=== PATIENT | female | born 1955 | race Caucasian/White ===

== ENCOUNTER 2025-03-23 19:08 | Observation (INO) | payer MEDICARE, SELFPAY ==
--- OUTSIDE RECORDS SUMMARY | 2024-08-26 05:30 | XMS_ITS ---
Author Organization [facility] Address [address] [place], [place] [id number] Care Team Providers Care Technical Aide Name Role Phone DOV MCALLISTER Unavailable [phone] Sony Montoya Unavailable Unavailable REASON FOR VISIT *General care Encounters Encounter Location Date Provider Diagnosis [facility] [address] [facility] [address] [place], [place] [id number] 08/26/2024 DOV MCALLISTER Plan Of Treatment No Information Progress Notes * HIRAM GROVES MDOB: [birth year] (70 yo F)Acc No.[id number]:08/26/2024 Patient: Olayinka HIRAM PFEIFFER Provider: Alvaro Mcallister DPM :1955 A ge:69 Y S ex:Female Date:08/26/2024 Address:[address], [place], [place] Subjective: * Chief Complaints: * * General care Billing Information: * Procedure Codes: * Electronic signature of ODV MCALLISTER DPM on 03/23/2025 at 08:47 AM CDT Sign off status: Pending * Provider: Alvaro Mcallister DPM Date: 0 08/26/2024 Generated for Printi ng/Faxing/eTransmitting on: 1 08:47 AM CDT
--- OUTSIDE RECORDS SUMMARY | 2025-03-12 04:00 | XMS_ITS ---
Author Organization [facility] Address [address] [place] [address] Care Team Providers Care Client Technical Professional Name Role Phone Migration, Provider Unavailable Unavailable REASON FOR VISIT EMR-Danielito Encounters Encounter Location Date Provider Diagnosis [facility] [address] [place] [address] 03/12/2025 Provider Migration Plan Of Treatment No Information Progress Notes * Nerissa ASTUDILLOOB: 4 (70 yo F)Acc No.[id number]:03/12/2025 Patient: Olayinka Gayathri PFEIFFER :1955 A ge:70 Y S ex:Female Address:[address] [place] [address] Subjective: * Chief Complaints: * E MR-Danielito * * Date:
[2025-03-23] VITALS (16 sets, daily range): BP systolic 161–207; BP diastolic 73–132; PULSE 60–83; RESP 14–23; TEMP 36.2–36.9; O2SAT 19–96; BMI 32.1
--- NOTE | ~2025-03-23 | CT_ITS ---
EXAMINATION: CTA brain carotid DATE: 03/24/2025 09:21 INDICATION: Amnesia. TECHNIQUE: Computed tomographic angiography (CTA) of the head was performed without and with 100 mL Omnipaque-350 intravenous contrast. CTA of the neck was performed with intravenous contrast. Automated exposure control and iterative reconstruction technique were employed. The dose-length product was 1946.25 mGy- cm. Maximum intensity projection and volume rendered 3D-reconstructions were created by the technologist on a separate workstation. COMPARISON: Head CT 03/23/25 FINDINGS: HEAD CTA: There is an old infarct infarct involving the right basal ganglia, posterior limb right internal capsule, and right thalamus. There is an old infarct in the right frontoparietal region. There are scattered areas of low attenuation in the cerebral white matter. There is no intracranial hemorrhage, acute infarction, or abnormal intracranial mass lesion. There is ex vacuo dilatation of body of right lateral ventricle. The paranasal sinuses are clear. There are likely changes of ocular lens replacement surgeries. There is a small left mastoid effusion. The vertebral arteries are codominant. There is total occlusion of distal left vertebral artery. There is no significant stenosis of basilar artery or the posterior cerebral arteries. There is no significant stenosis of intracranial internal carotid arteries or anterior or middle cerebral arteries. Anterior communicating artery is normal. The posterior communicating arteries are normal. There is no aneurysm. NECK CTA: There are small pleural effusions. The lungs demonstrate septal thickening and groundglass opacities, consistent with pulmonary edema. There are nodules in the thyroid measuring up to 6 mm, likely not clinically significant. There is mediastinal and bilateral supraclavicular lymphadenopathy. For example, a right supraclavicular node measures 11 x 17 mm. Main pulmonary artery is enlarged, consistent with pulmonary arterial hypertension. There is no significant stenosis of the cervical vertebral arteries. There is plaque in the proximal internal carotid arteries. There is 62% stenosis of the proximal right internal carotid artery relative to normal distal artery lumen diameter (NASCET criteria). There is 49% stenosis of the proximal left internal carotid artery relative to normal distal artery lumen diameter. There is severe cervical spondylosis. IMPRESSION: 1. 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 2. 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 3. 62% stenosis of the proximal right internal carotid artery relative to normal distal artery lumen diameter (NASCET criteria). 4. 49% stenosis of the proximal left internal carotid artery relative to normal distal artery lumen diameter. 5. Mediastinal and bilateral supraclavicular lymphadenopathy, which may be reactive, metastatic disease, or lymphoma. 6. Pulmonary edema and small pleural effusions. Reviewed, dictated and finalized at location E. IMPRESSION: 1. Old infarcts involving the right basal ganglia, posterior limb right interna l capsule, right thalamus, and right frontoparietal region. 2. 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 3. 62% stenosis of the proximal right internal carotid artery relative to blayne l distal artery lumen diameter (NASCET criteria). 4. 49% stenosis of the proximal left internal carotid artery relative to normal distal artery lumen diameter. 5. Mediastinal and bilateral supraclavicular lymphadenopathy, which may be reac tive, metastatic disease, or lymphoma. 6. Pulmonary edema and small pleural effusions.
--- NOTE | ~2025-03-23 | CT_ITS ---
CT HEAD NON-CONTRAST Clinical History: poss cva Comparison: None Technique: Unenhanced axial images skull base to vertex Coronal, sagittal reformats CT images acquired with automatic exposure control for dose reduction DLP: 605 mGy-cm Findings: Mild white matter changes, typically chronic microvascular ischemic disease. Sulci, ventricles: Unremarkable. No intracerebral hemorrhage. No evidence acute territorial infarct. No mass effect, midline shift. Bony calvarium intact. Visualized paranasal sinuses: Clear. Mastoid air cells: Clear. IMPRESSION: 1. No acute intracranial findings. Reviewed, dictated and finalized at location R.
--- NOTE | ~2025-03-23 | XR_ITS ---
XR chest 1V portable INDICATION:speaking difficulties . REFERENCE: None FINDINGS: A single AP of the chest demonstrates normal heart size. The lungs are clear. There is no evidence of pneumothorax or pleural effusion. No chamber pacing device is noted. IMPRESSION: No acute pulmonary findings. Reviewed, dictated and finalized at location S.
--- OUTSIDE RECORDS SUMMARY | 2025-03-23 02:44 | XMS_ITS ---
Author Organization [facility] Address [address] [place] [phone] Care Team Providers Care Childbirth Educator Name Role Phone DR. MINE CASTELLANOS Primary Care Provider [phone] Allergies Allergen (clinical drug ingredient) Drug/Non Drug Allergy documented on EMR Reaction Allergy Type Onset Date Status Plendil Unknown Drug Allergy Active furosemide Furosemide Unknown Drug Allergy Activ e REASON FOR VISIT chart prep Medications Medication SIG (Take, Route, Frequency, Duration) Notes Start Date End Date Status Eliquis 5 MG Tablet 1 tablet Orally twic e a day Active Docusate Sodium 100 MG Capsule 1 capsule Orally twice a day Active Atorvastatin Calcium 80 MG Tablet 1 tablet Orally Once a day Active Acetaminophen 325 MG Tablet 2 tablet as needed Orally every 6 hrs Active Triamcinolone Acetonide 0.1 % Ointment 1 application Externally Twice a day 2025 Active Meclizine HCl 12.5 MG Tablet 1 tablet Orally daily Active Levothyroxine Sodium 100 MCG Tablet 1 tablet in the morning on an empty stomach Orally Once a day Active glipiZIDE 5 MG Tablet 1 tablet 30 minute s before breakfast Orally Once a day Active Farxiga 10 MG Tablet 1 tablet Orally Onc e a day Active Ergocalciferol 1.25 MG (60750 UT) Capsule 1 capsule Orally weekly Active Lisinopril 10 MG Tablet 1 tablet Orally Once a day; Duration: 30 days 03/01/2025 Active NexIUM 40 MG Capsule Delayed Release 1 CAPSULE Orally Once a day Active MiraLax 17 GM/SCOOP Powder as directed Orally daily As needed Active metFORMIN HCl 1000 MG Tablet 1 tablet wi th a meal Orally Once a day Active Melatonin 3 MG Tablet 1 tablet at bedtim e as needed Orally Once a day Active Lisinopril 5 MG Tablet 1 tablets Orally Once a day Active diphenhydrAMINE HCl 25 MG Tablet 1 tablet at bedtime as needed Orally Once a day Active Social History Tobacco Use: Social History Observation Description Date Details (start date - stop date) Never Smoker NA - NA Social History Tobacco Use: Social Info Question Answer Notes Tobacco Control (Standard) Tobacco use: Nonsmoker Encounters Encounter Location Date Provider Diagnosis [facility] [address] [place] [address] 03/23/2025 MINE CASTELLANOS Plan Of Treatment Next Appt Details Provider Name:Augusta Jimenez , 03/24/2025 07:15:00 AM, [address], [place], [address], Progress Notes * Nerissa ASTUDILLOOB: 4 (70 yo F)Acc No.[id number]:03/23/2025 Patient: Gayathri ALVARADO :1955 A ge:70 Y S ex:Female Address:[address] [place], [place] [id number] Subjective: * Chief Complaints: * C bahena prep * Medical History: Other cerebral infarction Hemiplegia and hemiparesis following cerebral infarction affecting left non- dominant side Type 2 diabetes mellitus without complication, unspecified whether bed bug exterminator insulin use Heart failure, unspecified Unspecified atrial fibrillation Muscle weakness (generalized) Other abnormalities of gait and mobility Other voice and resonance disorders Hyperlipidemia Insomnia, unspecified Essential (primary) hypertension Need for assistance with personal care Personal history of transient ischemic attack (TIA), and cerebral infarction without residual deficits Pain, unspecified Hypothyroidism, unspecified Obstructive sleep apnea (adult) (pediatric) Meniere's disease, unspecified ear Hypo-osmolality and hyponatremia Vitamin D deficiency Nausea Gastro-esophageal reflux disease without esophagitis Constipation Gout, unspecified * Surgical History: cardiac cathetherization total hip arthroplasty pacemaker Surgical History verified. * Family History: M other: breast cancer. F ather: diagnosed with Acute myocardial infarction, unspecified.?Maternal Grandfather: diagnosed with Stroke. F amily History Verified.. * Social History: T obacco Use: T obacco Control (Standard) T obacco use: N onsmoker. Social History Verified. * Medications: T akingLisinopril 5 MG Tablet 1 tablets Orally Once a day diphenhydrAMINE HCl 25 MG Tablet 1 tablet at bedtime as needed Orally Once a day Lisinopril 10 MG Tablet 1 tablet Orally Once a day NexIUM 40 MG Capsule Delayed Release 1 CAPSULE Orally Once a day MiraLax 17 GM/SCOOP Powder as directed Orally daily As neededmetFORMIN HCl 1000 MG Tablet 1 tablet with a meal Orally Once a day Melatonin 3 MG Tablet 1 tablet at bedtime as needed Orally Once a day Meclizine HCl 12.5 MG Tablet 1 tablet Orally daily Levothyroxine Sodium 100 MCG Tablet 1 tablet in the morning on an empty stomach Orally Once a day glipiZIDE 5 MG Tablet 1 tablet 30 minutes before breakfast Orally Once a day Farxiga 10 MG Tablet 1 tablet Orally Once a day Ergocalciferol 1.25 MG (12891 UT) Capsule 1 capsule Orally weekly Eliquis 5 MG Tablet 1 tablet Orally twice a day Docusate Sodium 100 MG Capsule 1 capsule Orally twice a day Atorvastatin Calcium 80 MG Tablet 1 tablet Orally Once a day Acetaminophen 325 MG Tablet 2 tablet as needed Orally every 6 hrs Triamcinolone Acetonide 0.1 % Ointment 1 application Externally Twice a day Taking Lisinopril 5 MG Tablet 1 tablets Orally Once a day Taking diphenhydrAMINE HCl 25 MG Tablet 1 tablet at bedtime as needed Orally Once a day Taking Lisinopril 10 MG Tablet 1 tablet Orally Once a day Taking NexIUM 40 MG Capsule Delayed Release 1 CAPSULE Orally Once a day Taking MiraLax 17 GM/SCOOP Powder as directed Orally daily As neededTaking metFORMIN HCl 1000 MG Tablet 1 tablet with a meal Orally Once a day Taking Melatonin 3 MG Tablet 1 tablet at bedtime as needed Orally Once a day Taking Meclizine HCl 12.5 MG Tablet 1 tablet Orally daily Taking Levothyroxine Sodium 100 MCG Tablet 1 tablet in the morning on an empty stomach Orally Once a day Taking glipiZIDE 5 MG Tablet 1 tablet 30 minutes before breakfast Orally Once a day Taking Farxiga 10 MG Tablet 1 tablet Orally Once a day Taking Ergocalciferol 1.25 MG (87007 UT) Capsule 1 capsule Orally weekly Taking Eliquis 5 MG Tablet 1 tablet Orally twice a day Taking Docusate Sodium 100 MG Capsule 1 capsule Orally twice a day Taking Atorvastatin Calcium 80 MG Tablet 1 tablet Orally Once a day Taking Acetaminophen 325 MG Tablet 2 tablet as needed Orally every 6 hrs Taking Triamcinolone Acetonide 0.1 % Ointment 1 application Externally Twice a day * Allergies: F urosemidePlendilyesAllergies Verified. * true * Date: Generated for Meredith catherine/Noemi/Jessica on: 08:59 PM CDT
--- NOTE | 2025-03-23 19:13 | ECG_ITS ---
Test Date: 2025-03-23 19:48:37 Measurements Intervals [place] Rate: 60 P: 0 OH: 0 QRS: -75 QRSD: 178 T: 101 QT: 531 QTc: 531 Interpretive Statements ELECTRONIC VENTRICULAR PACEMAKER BASELINE ARTIFACT- I, III, AVR, AVL, V1-V3 NO FURTHER INTERPRETATION IS POSSIBLE ATYPICAL ECG No previous ECG available for comparison Electronically Signed On 03-24-2025 06:15:07 CDT by Sergio Moe D.O.
[2025-03-23 19:20] LABS: Hematocrit 41.1 % (37.0-47.0); Hemoglobin 13.3 g/dL (12.0-15.0); Immature Granulocyte Percent A 0.5 % (0-0.5); Lymphocytes Absolute Auto 1.64 K/mm3 (0.9-3.2); Mean Corpuscular HGB Conc 32.4 g/dl (32-36); Mean Corpuscular Hemoglobin 29.0 pg (26-34); Mean Corpuscular Volume 89.7 fl (80-100); Nucleated Red Blood Cells Absolute Auto 0.000 K/mm3 (0.0-0.012); Nucleated Red Blood Cells Perc 0.0 % (0.0-0.2); Platelet Count Result 213 k/mm3 (150-375); Red Blood Count 4.58 M/mm3 (4.2-5.4); White Blood Count 7.5 K/mm3 (4.5-10.0)
[2025-03-23 19:27] LABS: INR 1.1; Prothrombin Time 14.6 Seconds (11.1-14.7)
[2025-03-23 19:28] LABS: Partial Thromboplastin Time 34.8 Seconds (22.3-36.8)
[2025-03-23 19:31] LABS: Alanine Aminotransferase 18 U/L (6-35); Albumin Level 4.0 g/dL (3.5-5.1); Alkaline Phosphatase 87 U/L (38-126); Anion Gap 11 mmol/L (4-12); Aspartate Amino Transferase 19 U/L (14-36); Bilirubin,Total 0.7 mg/dL (0.2-1.3); Blood Urea Nitrogen 18 mg/dL (7-17); Calcium 9.4 mg/dL (8.4-10.2); Carbon Dioxide 22 mmol/L (22-30); Chloride 106 mmol/L (98-107); Estimated CRCL calculation 71 ml/min; Estimated Glomerular Filt Rate > 60; Glucose 123 mg/dL (65-110); Potassium 3.9 mmol/L (3.4-5.0); Sodium 139 mmol/L (137-145); Total Protein 6.9 g/dL (6.3-8.2)
[2025-03-23 19:41] LABS: Troponin I < 0.012 ng/mL (0.000-0.034)
--- NOTE | 2025-03-23 19:59 | ED_ITS ---
HPI - Neuro Symptoms/Deficit General Chief Complaint: Suspected CVA Stated Complaint: cva symptoms Time Seen by Provider: 03/23/25 19:47 Source: patient Mode of arrival: ambulatory Limitations: no limitations History of Present Illness HPI Narrative: 70 YEARS OLD WHITE FEMALE CAME FROM LONG TERM BY AMBULANCE WITH SUDDEN ONSET OF DIFFICULTY TO MANAGE THE REMOTE CONTROL OF TV, COULD NOT REMEMBER THE CHANNELS, COULD NOT FIND WORDS, COULD REMEMBER THE NAME OF THE NURSE LASTED FOR 10 MINUTES THEN EVERYTHING IS BACK TO NORMAL. ON ARRIVAL TO THE ED PATIENT IS ASYMPTOMATIC. HISTORY OF DIABETES, HYPERTENSION, HYPERLIPIDEMIA, LEFT HEMIPLEGIA 16 YEARS AGO, PATIENT IS TELLING ME THAT SHE HAD RECENT CVA ON DECEMBER OF THIS YEAR AND WAS HOSPITALIZED AT [facility] AT THAT TIME. PATIENT CURRENTLY ON ELIQUIS AND ASPIRIN. PATIENT USE A WALKER, CANE TO MANAGE WALKING. SHE DENIES ANY FEVER, CHILLS, NAUSEA, VOMITING, CHEST PAIN, SHORTNESS OF BREATH OR NEW FOCAL NEUROLOGIC ABNORMALITY Review of Systems 2 Review of Systems: All systems reviewed & are unremarkable except as noted in HPI and below Exam 2 Narrative: GENERAL APPEARANCE: WELL-DEVELOPED, WELL-NOURISHED SKIN: NORMAL COLOR HEAD: NORMOCEPHALIC, NONTRAUMATIC EYES: CLEAR CONJUNCTIVA ENT: OROPHARYNX NORMAL, EARS NORMAL, NOSE NORMAL NECK: SUPPLE, NONTENDER CHEST AND RESPIRATORY: AIRWAY PATENT, NO RESPIRATORY DISTRESS, NO ACCESSORY MUSCLE USE HEART: REGULAR RATE/RHYTHM ABDOMEN: SOFT, NONTENDER, NO ORGANOMEGALY, QUIET BOWEL SOUNDS VASCULAR: NORMAL PERIPHERAL PULSES, NORMAL CAPILLARY REFILL. MUSCULOSKELETAL: NORMAL RANGE OF MOTION, NONTENDER BACK NEUROLOGIC: ALERT AND ORIENTED ?3, LEFT HEMIPLEGIA Course Vital Signs Vital signs: Vital Signs Pulse Rate 66 03/23/25 19:10 Respiratory Rate 20 03/23/25 19:10 Blood Pressure 207/85 H 03/23/25 19:10 Pulse Oximetry 95 03/23/25 19:10 Temperature 36.9 C 03/23/25 19:14 Pulse Rate 60 03/23/25 19:45 Respiratory Rate 19 03/23/25 19:45 Blood Pressure 187/132 H 03/23/25 19:45 Pulse Oximetry 95 03/23/25 19:45 Oxygen Delivery Room Air 03/23/25 19:14 MDM - Neuro Symptoms/Deficit MDM Narrative Medical decision making narrative: PATIENT CAME TO THE ED WITH TIA LIKE SYMPTOMS RESOLVED AFTER 10 MINUTES VITAL SIGNS SHOWING BLOOD PRESSURE 207/85 OTHERWISE WITHIN NORMAL LIMIT PHYSICAL EXAMINATION CONSISTENT WITH LEFT HEMIPLEGIA OTHERWISE WITHIN NORMAL LIMIT DIFFERENTIAL DIAGNOSIS INCLUDE TIA, ELECTROLYTE ABNORMALITY, STRESS RELATED SYMPTOMS BLOOD WORKUP TODAY INCLUDES CBC, CMP, SHOWED NO SIGNIFICANT ABNORMALITY CT HEAD WITHOUT CONTRAST SHOWED NO ACUTE ABNORMALITY CHEST X-RAY SHOWED NO ACUTE ABNORMALITY DIAGNOSIS TIA ADMIT TO HOSPITALIST Differential Diagnosis Differential diagnosis: Likely other ( ABOVE) Medical Records Attestation: I reviewed the patient's medical records. Lab Data Attestation: I reviewed the patient's lab results. 03/23/25 19:13 03/23/25 19:13 Labs: Lab Results 03/23/25 Range/Units 19:13 WBC 7.5 (4.5-10.0) K/mm3 RBC 4.58 (4.2-5.4) M/mm3 Hgb 13.3 (12.0-15.0) g/dL Hct 41.1 (37.0-47.0) % MCV 89.7 (80-100) fl MCH 29.0 (26-34) pg MCHC 32.4 (32-36) g/dl RDW 13.8 (11.5-14.5) % Plt Count 213 (150-375) k/mm3 MPV 11.2 H (7.4-10.4) fl Immature Gran % (Auto) 0.5 (0-0.5) % Neut % (Auto) 62.0 (45.5-73.1) % Lymph % (Auto) 21.8 (18.3-44.2) % [place] % (Auto) 9.4 H (2.6-8.5) % Eos % (Auto) 5.8 H (0-4.4) % Baso % (Auto) 0.5 (0.2-1.2) % Lymph # (Auto) 1.64 (0.9-3.2) K/mm3 [place] # (Auto) 0.7 H (0.1-0.6) K/mm3 Eos # (Auto) 0.4 H (0-0.3) K/mm3 Baso # (Auto) 0.0 (0.0-0.1) K/mm3 Abs Immat Gran (auto) 0.04 H (0.00-0.031) K/mm3 Absolute Neuts (auto) 4.7 (1.3-6.7) K/mm3 Absolute Nucleated RBC 0.000 (0.0-0.012) K/mm3 Nucleated RBC % 0.0 (0.0-0.2) % PT 14.6 (11.1-14.7) Seconds INR 1.1 APTT 34.8 (22.3-36.8) Seconds Sodium 139 (137-145) mmol/L Potassium 3.9 (3.4-5.0) mmol/L Chloride 106 (98-107) mmol/L Carbon Dioxide 22 (22-30) mmol/L Anion Gap 11 (4-12) mmol/L BUN 18 H (7-17) mg/dL Creatinine 0.60 L (0.7-1.0) mg/dL Estim Creat Clear Calc 71 ml/min Estimated GFR > 60 (59 - ) Glucose 123 H (65-110) mg/dL Calcium 9.4 (8.4-10.2) mg/dL Total Bilirubin 0.7 (0.2-1.3) mg/dL AST 19 (14-36) U/L ALT 18 (6-35) U/L Alkaline Phosphatase 87 (38-126) U/L Troponin I < 0.012 (0.000-0.034) ng/mL Total Protein 6.9 (6.3-8.2) g/dL Albumin 4.0 (3.5-5.1) g/dL Imaging Data Radiologist's impression: Impressions Head CT 03/23/25 19:07 IMPRESSION: 1. No acute intracranial findings. Chest X-Ray 03/23/25 19:54 IMPRESSION: No acute pulmonary findings. Critical Care Time Critical Care Time Critical Care Time: No Discharge Plan Discharge Patient Disposition: Still a Patient Additional Instructions: TIA, ADMIT TO HOSPITALIST Patient Language: [place] Follow-up/Referrals: UNKNOWN,DOCTOR [Primary Care Provider] Quality Stroke Scale Stroke Scale 1: Stroke scale date:: 03/23/25 1a Level of consciousness: alert-0 1b Level of consciousness questions: answers both correctly-0 1c Level of consciousness commands: obeys both correctly-0 2 Best gaze: normal-0 3 Visual: no visual loss-0 4 Facial palsy: normal-0 5a Motor: left arm: some effort/gravity-2 5b Motor: right arm: no drift-0 6a Motor: left leg: some effort/gravity-2 6b Motor: right leg: no drift-0 7 Limb ataxia: present in one limb-1 8 Sensory: pinprick less sharp-1 9 Best language: no aphasia-0 10 Dysarthria: normal-0 11 Extinction and inattention: no abnormality-0 Level:: 6
--- NOTE | 2025-03-23 20:44 | PC.NURSE ---
Medical POA notified that pt is in the Emergency Room per pt request.
--- OUTSIDE RECORDS SUMMARY | 2025-03-23 21:00 | XMS_ITS | Patient Health Record ---
Author Organization [facility] Address [address] [place] [phone] Care Team Providers Care Transmitter Engineer Name Role Phone DR. MINE CASTELLANOS Primary Care Provider Augusta Jimenez Unavailable [phone] Allergies Allergen (clinical drug ingredient) Drug/Non Drug Allergy documented on EMR Reaction Allergy Type Onset Date Status Plendil Unknown Drug Allergy Active furosemide Furosemide Unknown Drug Allergy Activ e Reason For Referral No Information Medications Medication SIG (Take, Route, Frequency, Duration) Notes Start Date End Date Status Melatonin 3 MG Tablet 1 tablet at bedtim e as needed Orally Once a day Active Meclizine HCl 12.5 MG Tablet 1 tablet Orally daily Active Levothyroxine Sodium 100 MCG Tablet 1 tablet in the morning on an empty stomach Orally Once a day Active glipiZIDE 5 MG Tablet 1 tablet 30 minute s before breakfast Orally Once a day Active Farxiga 10 MG Tablet 1 tablet Orally Onc e a day Active Ergocalciferol 1.25 MG (65290 UT) Capsule 1 capsule Orally weekly Active Lisinopril 5 MG Tablet 1 tablets Orally Once a day Active diphenhydrAMINE HCl 25 MG Tablet 1 tablet at bedtime as needed Orally Once a day Active Eliquis 5 MG Tablet 1 tablet Orally twic e a day Active Lisinopril 10 MG Tablet 1 tablet Orally Once a day; Duration: 30 days 03/01/2025 Active Docusate Sodium 100 MG Capsule 1 capsule Orally twice a day Active NexIUM 40 MG Capsule Delayed Release 1 CAPSULE Orally Once a day Active Atorvastatin Calcium 80 MG Tablet 1 tablet Orally Once a day Active MiraLax 17 GM/SCOOP Powder as directed Orally daily As needed Active Acetaminophen 325 MG Tablet 2 tablet as needed Orally every 6 hrs Active metFORMIN HCl 1000 MG Tablet 1 tablet wi th a meal Orally Once a day Active Triamcinolone Acetonide 0.1 % Ointment 1 application Externally Twice a day 2025 Active Social History Tobacco Use: Social History Observation Description Date Details (start date - stop date) Never Smoker NA - NA Social History Drug/Alcohol: Social Info Question Answer Notes Drugs Have you used drugs other than those for medical reasons in the past 12 months? No AUDIT-C (Standard) Did you have a drink containing alcohol in the past year? No Points 0 Interpretation Negative Tobacco Use: Social Info Question Answer Notes Tobacco Control (Standard) Tobacco use: Nonsmoker Problems Problem Type SNOMED Code ICD Code Onset Dates Problem Status W/U Status Risk Notes Problem Hypothyroidism (78004976) Hypothyroidism, unspecified (E03.9) Active confirmed Problem Insomnia (591090949) Insomnia, unspecified (G47.00) Active confirmed Problem Obstructive sleep apnea syndrome (disorder) (15567390) Obstructive sleep apnea (adult) (pediatric) (G47.33) Active confirmed Problem Meniere disease (33962626) Meniere's disease, unspecified ear (H81.09) Active confirmed Problem Essential hypertension (25617632) Essential (primary) hypertension (I10) Active confirmed Problem Atrial fibrillation (65062885) Unspecified atrial fibrillation (I48.91) Active confirmed Problem Heart failure (12821383) Heart failure, unspecified (I50.9) Active confirmed Problem Hemiplegia of nondominant side as late effect of cerebrovascular disease (438000588) Hemiplegia and hemiparesis following cerebral infarction affecting left non-dominant side (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) Active confirmed Problem Gastro-esophageal reflux disease without esophagitis (147884586) Gastro-esophageal reflux disease without esophagitis (K21.9) Active confirmed Problem Gout (92872674) Gout, unspecifie d (M10.9) Active confirmed Problem Abnormal gait (09268854) Other abnormalities of gait and mobility (R26.89) Active confirmed Problem Type II diabetes mellitus without complication (846022334) Type 2 diabetes mellitus without complication, unspecified whether ocean transportation intermediary insulin use (E11.9) Active confirmed Problem Cerebral infarction (609430488) Other cerebral infarction (I63.89) Active confirmed Problem Vitamin D deficiency (20360744) Vitamin D deficiency (E55.9) Active confirmed Problem Hyperlipidemia (43355140) Hyperlipidemia (E78.5) Active confirmed Problem Constipation (96568545) Constipation (K59.00) Active confirmed Vital Signs Heart Rate 64 /min 03/16/2025 Temperature 97.7 degrees Fahrenheit 03/16/2025 Respiratory Rate 18 /min 03/16/2025 Oximetry 95 % 03/16/2025 Blood pressure diastolic 76 mm Hg 03/16/2025 Weight-kg 80.29 kg 02/16/2025 Blood pressure systolic 148 mm Hg 03/16/2025 Weight 177 lbs 02/16/2025 Encounters Encounter Location [place] [address] 02/16/2025 [place] [address] 02/22/2025 Augusta Davis Other cerebral infarction I63.89 ; Physical deconditioning R53.81 ; Hemiplegia and hemiparesis following cerebral infarction affecting left non-dominant side I69.354 ; Essential (primary) hypertension I10 ; Unspecified atrial fibrillation I48.91 and Rash R21 [place] [address] 02/24/2025 Augusta Jimenez Other cerebral infarction I63.89 ; Physical deconditioning R53.81 ; Hemiplegia and hemiparesis following cerebral infarction affecting left non-dominant side I69.354 ; Essential (primary) hypertension I10 ; Unspecified atrial fibrillation I48.91 and Rash [place]21 [place] [address] 02/28/2025 Augusta Jimenez Other cerebral infarction I63.89 ; Physical deconditioning R53.81 ; Hemiplegia and hemiparesis following cerebral infarction affecting left non-dominant side I69.354 ; Essential (primary) hypertension I10 ; Unspecified atrial fibrillation I48.91 ; Rash R21 and Bilateral lower extremity edema R60.0 [place] [address] 03/02/2025 Augusta Jimenez Other cerebral infarction I63.89 ; Physical deconditioning R53.81 ; Hemiplegia and hemiparesis following cerebral infarction affecting left non-dominant side I69.354 ; Essential (primary) hypertension I10 ; Unspecified atrial fibrillation I48.91 ; Rash R21 and Bilateral lower extremity edema R60.[address] [address] 03/08/2025 Augusta Jimenez Other cerebral infarction I63.89 ; Physical deconditioning R53.81 ; Hemiplegia and hemiparesis following cerebral infarction affecting left non-dominant side I69.354 ; Essential (primary) hypertension I10 ; Unspecified atrial fibrillation I48.91 ; Rash R21 and Bilateral lower extremity edema R60.[address] [address] 03/10/2025 Augusta Jimenez Other cerebral infarction I63.89 ; Physical deconditioning R53.81 ; Hemiplegia and hemiparesis following cerebral infarction affecting left non-dominant side I69.354 ; Essential (primary) hypertension I10 ; Unspecified atrial fibrillation I48.91 ; Rash R21 and Bilateral lower extremity edema R60.[address] [address] 03/14/2025 Augusta Jimenez Other cerebral infarction I63.89 ; Physical deconditioning R53.81 ; Hemiplegia and hemiparesis following cerebral infarction affecting left non-dominant side I69.354 ; Essential (primary) hypertension I10 ; Unspecified atrial fibrillation I48.91 ; Rash R21 and Bilateral lower extremity edema R60.[address] [address] 03/16/2025 Augusta Jimenez Other cerebral infarction I63.89 ; Physical deconditioning R53.81 ; Hemiplegia and hemiparesis following cerebral infarction affecting left non-dominant side I69.354 ; Essential (primary) hypertension I10 ; Unspecified atrial fibrillation I48.91 ; Rash R21 and Bilateral lower extremity edema R60.[address] [address] 03/23/[address] [address] 02/13/[address] [address] 02/14/[address] [address] 02/21/2025 MINE FLICK [address] [address] 2025 MINE CASTELLANOS [address] [address] 02/27/2025 MINE CASTELLANOS [address] [address] 03/02/2025 MINE CASTELLANOS [address] [address] 03/02/2025 MINE CASTELLANOS [address] [address] 03/07/2025 MINE CASTELLANOS [address] [address] 03/08/2025 MINE CASTELLANOS [address] [address] 03/09/2025 MINE CASTELLANOS [address] [address] 03/14/2025 MINE CASTELLANOS [address] [address] 03/20/2025 MINE CASTELLANOS [address] [address] 03/23/2025 MINE CASTELLANOS Assessments Encounter Date Diagnosis (ICD Code) Assessment Notes Treatment Notes Treatment Clinical Notes Section Notes 02/22/2025 Other cerebral infarction (ICD-10 - I63.89) Patient was admitted to the hospital with double vision, with a new diagnosis of CVA. Patient had an old CVA that resulted in left-sided weakness. Patient reports that she has no new symptoms from the new CVA. 02/22/2025 Physical deconditioning (ICD-10 - R53.81) Patient is working with PT and OT for strengthening and mobility. She reports therapy is going good. She is utilizing a wheelchair for ambulation. 02/24/2025 Other cerebral infarction (ICD-10 - I63.89) Patient was admitted to the hospital with double vision, with a new diagnosis of CVA. Patient had an old CVA that resulted in left-sided weakness. Patient reports that she has no new symptoms from the new CVA. 02/28/2025 Other cerebral infarction (ICD-10 - I63.89) Patient was admitted to the hospital with double vision, with a new diagnosis of CVA. Patient had an old CVA that resulted in left-sided weakness. Patient reports that she has no new symptoms from the new CVA. 03/02/2025 Other cerebral infarction (ICD-10 - I63.89) Patient was admitted to the hospital with double vision, with a new diagnosis of CVA. Patient had an old CVA that resulted in left-sided weakness. Patient reports that she has no new symptoms from the new CVA. 03/08/2025 Other cerebral infarction (ICD-10 - I63.89) Patient was admitted to the hospital with double vision, with a new diagnosis of CVA. Patient had an old CVA that resulted in left-sided weakness. Patient reports that she has no new symptoms from the new CVA. Patient has a follow-up with her neurologist on 03/10/2025. 03/10/2025 Other cerebral infarction (ICD-10 - I63.89) Patient was admitted to the hospital with double vision, with a new diagnosis of CVA. Patient had an old CVA that resulted in left-sided weakness. Patient reports that she has no new symptoms from the new CVA. Patient has a follow-up with her neurologist on 03/10/2025. 03/14/2025 Other cerebral infarction (ICD-10 - I63.89) Patient was admitted to the hospital with double vision, with a new diagnosis of CVA. Patient had an old CVA that resulted in left-sided weakness. Patient reports that she has no new symptoms from the new CVA. Patient has a follow-up with her neurologist on 03/10/2025. 03/16/2025 Other cerebral infarction (ICD-10 - I63.89) Patient was admitted to the hospital with double vision, with a new diagnosis of CVA. Patient had an old CVA that resulted in left-sided weakness. Patient reports that she has no new symptoms from the new CVA. Patient had a follow-up with her neurologist on 03/10/2025, unsure if any new orders are given. 03/16/2025 Physical deconditioning (ICD-10 - R53.81) Patient is working with PT and OT for strengthening and mobility. She reports therapy is going good. She is utilizing a wheelchair for ambulation. Last covered day was 03/15/2025, patient did appeal but lost and they are doing a reconsideration appeal. Facility will update with any changes. 03/14/2025 Physical deconditioning (ICD-10 - R53.81) Patient is working with PT and OT for strengthening and mobility. She reports therapy is going good. She is utilizing a wheelchair for ambulation. Last covered day is 03/15/2025, but patient is appealing. Facility will update with any changes. 03/10/2025 Physical deconditioning (ICD-10 - R53.81) Patient is working with PT and OT for strengthening and mobility. She reports therapy is going good. She is utilizing a wheelchair for ambulation. Last covered day is 03/10/2025, but patient is appealing. Facility will update with any changes. 03/08/2025 Physical deconditioning (ICD-10 - R53.81) Patient is working with PT and OT for strengthening and mobility. She reports therapy is going good. She is utilizing a wheelchair for ambulation. 03/02/2025 Physical deconditioning (ICD-10 - R53.81) Patient is working with PT and OT for strengthening and mobility. She reports therapy is going good. She is utilizing a wheelchair for ambulation. 02/28/2025 Physical deconditioning (ICD-10 - R53.81) Patient is working with PT and OT for strengthening and mobility. She reports therapy is going good. She is utilizing a wheelchair for ambulation. 02/24/2025 Physical deconditioning (ICD-10 - R53.81) Patient is working with PT and OT for strengthening and mobility. She reports therapy is going good. She is utilizing a wheelchair for ambulation. 02/22/2025 Hemiplegia and hemiparesis following cerebral infarction affecting left non-dominant side (ICD-10 - I69.354) Patient had an old stroke that resulted in the left-sided weakness in a left hand contracture. Patient reports no new symptoms from her new stroke. 02/24/2025 Hemiplegia and hemiparesis following cerebral infarction affecting left non-dominant side (ICD-10 - I69.354) Patient had an old stroke that resulted in the left-sided weakness in a left hand contracture. Patient reports no new symptoms from her new stroke. 02/22/2025 Essential (primary) hypertension (ICD-10 - I10) Blood pressure as stable. Managed well on current medications. Continue current treatment plan and monitoring. 02/28/2025 Hemiplegia and hemiparesis following cerebral infarction affecting left non-dominant side (ICD-10 - I69.354) Patient had an old stroke that resulted in the left-sided weakness in a left hand contracture. Patient reports no new symptoms from her new stroke. 03/02/2025 Hemiplegia and hemiparesis following cerebral infarction affecting left non-dominant side (ICD-10 - I69.354) Patient had an old stroke that resulted in the left-sided weakness in a left hand contracture. Patient reports no new symptoms from her new stroke. 03/08/2025 Hemiplegia and hemiparesis following cerebral infarction affecting left non-dominant side (ICD-10 - I69.354) Patient had an old stroke that resulted in the left-sided weakness in a left hand contracture. Patient reports no new symptoms from her new stroke. 03/10/2025 Hemiplegia and hemiparesis following cerebral infarction affecting left non-dominant side (ICD-10 - I69.354) Patient had an old stroke that resulted in the left-sided weakness in a left hand contracture. Patient reports no new symptoms from her new stroke. 03/14/2025 Hemiplegia and hemiparesis following cerebral infarction affecting left non-dominant side (ICD-10 - I69.354) Patient had an old stroke that resulted in the left-sided weakness in a left hand contracture. Patient reports no new symptoms from her new stroke. 03/16/2025 Hemiplegia and hemiparesis following cerebral infarction affecting left non-dominant side (ICD-10 - I69.354) Patient had an old stroke that resulted in the left-sided weakness in a left hand contracture. Patient reports no new symptoms from her new stroke. 03/16/2025 Essential (primary) hypertension (ICD-10 - I10) Blood pressure is still slightly elevated. Blood pressure log was sent on 03/15/2025 and was reviewed, new order was given to increase lisinopril to 15 mg daily and send blood pressure log in one week. 03/14/2025 Essential (primary) hypertension (ICD-10 - I10) Blood pressure stable at this time. Blood pressure log was sent on 03/06/2025 and her blood pressures were still running a little elevated. At that time, an order was given to increase her lisinopril to 10 mg daily and to send blood pressure log on Thursday03/10/2025 awaiting BP log to be sent. 03/10/2025 Essential (primary) hypertension (ICD-10 - I10) Blood pressure stable at this time. Blood pressure log was sent on 03/06/2025 and her blood pressures were still running a little elevated. At that time, an order was given to increase her lisinopril to 10 mg daily and to send blood pressure log on Thursday03/10/2025 awaiting BP log to be sent. 03/02/2025 Essential (primary) hypertension (ICD-10 - I10) Blood pressure is slightly better. Awaiting blood pressure log to be sent on 03/06/2025 for review. 03/08/2025 Essential (primary) hypertension (ICD-10 - I10) Blood pressure stable at this time. Blood pressure log was sent on 03/06/2025 and her blood pressures were still running a little elevated. At that time, an order was given to increase her lisinopril to 10 mg daily and to send blood pressure log on Thursday03/10/2025. 02/22/2025 Unspecified atrial fibrillation (ICD-10 - I48.91) Rate is controlled. Managed well on current medications. Continue current treatment plan and monitoring. 02/24/2025 Essential (primary) hypertension (ICD-10 - I10) Blood pressure as stable. Managed well on current medications. Continue current treatment plan and monitoring. 02/28/2025 Essential (primary) hypertension (ICD-10 - I10) Blood pressure has been running a little elevated recently. Order given today to increase lisinopril to 5 mg. Send blood pressure log in on Thursday. 02/28/2025 Unspecified atrial fibrillation (ICD-10 - I48.91) Rate is controlled. Managed well on current medications. Continue current treatment plan and monitoring. 02/24/2025 Unspecified atrial fibrillation (ICD-10 - I48.91) Rate is controlled. Managed well on current medications. Continue current treatment plan and monitoring. 02/22/2025 Rash (ICD-10 - R21) Patient developed a rash to the right foot and ankle. That started three days ago. An order was given today for triamcinolone 0.1% t.i.d. We will reevaluate on Thursday if need to change medications due to unsure of what is causing the rash. 03/08/2025 Unspecified atrial fibrillation (ICD-10 - I48.91) Rate is controlled. Managed well on current medications. Continue current treatment plan and monitoring. 03/02/2025 Unspecified atrial fibrillation (ICD-10 - I48.91) Rate is controlled. Managed well on current medications. Continue current treatment plan and monitoring. 03/10/2025 Unspecified atrial fibrillation (ICD-10 - I48.91) Rate is controlled. Managed well on current medications. Continue current treatment plan and monitoring. 03/14/2025 Unspecified atrial fibrillation (ICD-10 - I48.91) Rate is controlled. Managed well on current medications. Continue current treatment plan and monitoring. 03/16/2025 Unspecified atrial fibrillation (ICD-10 - I48.91) Rate is controlled. Managed well on current medications. Continue current treatment plan and monitoring. 03/14/2025 Rash (ICD-10 - R21) Patient has compression stockings on at this time. Unable to see rash personally. Patient reports the rash is healed. Order given to change triamcinolone cream to as needed. 03/16/2025 Rash (ICD-10 - R21) Rash is looking much better, areas no longer raised. Patient does have some small pink to reddish colored areas noted. Patient denies having any itching or symptoms. 03/10/2025 Rash (ICD-10 - R21) Patient has compression stockings on at this time. Unable to see rash personally. Patient reports that rash is almost healed, continue to monitor and update with any changes. 03/08/2025 Rash (ICD-10 - R21) Patient has compression stockings on at this time. Unable to see rash personally. Patient reports that rash is getting much better. No concerns at this time. 03/02/2025 Rash (ICD-10 - R21) The rash to the right foot and ankle is looking much better, patient is happy with progress. Continue to use the triamcinolone ointment until healed and update provider if worsens or is not getting any better. 02/24/2025 Rash (ICD-10 - R21) The rash to the right foot and ankle is getting better. Continue to use the triamcinolone ointment until healed and update provider if worsens or is not getting any better. 02/28/2025 Bilateral lower extremity edema (ICD-10 - R60.0) Patient is concerned with the edema in her lower extremities and would like to do edema wraps or compression stockings. Order given to do compression stockings on in the AM and off in the PM. 02/28/2025 Rash (ICD-10 - R21) The rash to the right foot and ankle is looking much better, patient is happy with progress. Continue to use the triamcinolone ointment until healed and update provider if worsens or is not getting any better. 03/08/2025 Bilateral lower extremity edema (ICD-10 - R60.0) Trace edema noted to the bilateral lower extremities. Compression stockings in place. Continue to monitor and update with any changes. 03/02/2025 Bilateral lower extremity edema (ICD-10 - R60.0) Edema is improving. Patient does not have the compression stockings yet. Order re-given to order compression stockings to be placed in the AM and taken off in the PM. 03/14/2025 Bilateral lower extremity edema (ICD-10 - R60.0) No edema noted at this time. Order given to change compression stockings to as needed. 03/10/2025 Bilateral lower extremity edema (ICD-10 - R60.0) Trace edema noted to the bilateral lower extremities. Compression stockings in place. Continue to monitor and update with any changes. 03/16/2025 Bilateral lower extremity edema (ICD-10 - R60.0) No edema noted at this time. Compression stockings are asneeded. 02/22/2025 Other Continue curren t treatment plan.Staff to continue to monitor and report any changes.Patient education provided and questions/concerns addressed.Follow up in one week unless necessary sooner. 02/24/2025 Other Continue curren t treatment plan.Staff to continue to monitor and report any changes.Patient education provided and questions/concerns addressed.Follow up in one week unless necessary sooner. 02/28/2025 Other Continue curren t treatment plan.Staff to continue to monitor and report any changes.Patient education provided and questions/concerns addressed.Follow up in one week unless necessary sooner. 03/02/2025 Other Continue curren t treatment plan.Staff to continue to monitor and report any changes.Patient education provided and questions/concerns addressed.Follow up in one week unless necessary sooner. 03/08/2025 Other Continue curren t treatment plan.Staff to continue to monitor and report any changes.Patient education provided and questions/concerns addressed.Follow up in one week unless necessary sooner. 03/10/2025 Other Continue curren t treatment plan.Staff to continue to monitor and report any changes.Patient education provided and questions/concerns addressed.Follow up in one week unless necessary sooner. 03/14/2025 Other Continue curren t treatment plan.Staff to continue to monitor and report any changes.Patient education provided and questions/concerns addressed.Follow up in one week unless necessary sooner. 03/16/2025 Other Continue curren t treatment plan.Staff to continue to monitor and report any changes.Patient education provided and questions/concerns addressed.Follow up in one week unless necessary sooner. Plan Of Treatment Next Appt Details Provider Name:Augusta Jimenez , 03/24/2025 07:15:00 AM, [address] [facility], [place], [address], Insurance Providers Payer Name Payer Address Payer Phone Subscriber Number Group Number Insured Name Patient Relationship to Insured Coverage Start Date Coverage End Date [facility] [address] [address] [place], [place] [id number] Gayathri Astudillo Self - patient is the insured Medical (General) History Medical History History ICD Code Other cerebral infarction I63.89 Hemiplegia and hemiparesis f ollowing cerebral infarction affecting left non-dominant side I69.354 Type 2 diabetes mellitus wit hout complication, unspecified whether [facility] insulin use E11.9 Heart failure, unspecified I50.9 Unspecified atrial fibrillation I48.91 Muscle weakness (generalized) M62.81 Other abnormalities of gait and mobility R26.89 Other voice and resonance disorders R49. 8 Hyperlipidemia E78.5 Insomnia, unspecified G47.00 Essential (primary) hypertension I10 Need for assistance with personal care Z 74.1 Personal history of transien t ischemic attack (TIA), and cerebral infarction without residual deficits Z86.73 Pain, unspecified R52 Hypothyroidism, unspecified E03.9 Obstructive sleep apnea (adult) (pediatr ic) G47.33 Meniere's disease, unspecified ear H81.0 9 Hypo-osmolality and hyponatremia E87.1 Vitamin D deficiency E55.9 Nausea R11.0 Gastro-esophageal reflux disease without esophagitis K21.9 Constipation K59.00 Gout, unspecified M10.9 Surgical History Surgery Date(Month/Year) cardiac cathetherization total hip arthroplasty pacemaker
--- OUTSIDE RECORDS SUMMARY | 2025-03-23 21:00 | XMS_ITS | Patient Health Record ---
Author Organization [facility] Address [address] [place] [address] Care Team Providers Care Box Order Person Name Role Phone Migration, Provider Unavailable Unavailable Reason For Referral No Information Encounters Encounter Location Date Provider Diagnosis [facility] [address] [place] [address] 03/11/2025 Provider Migration [facility] [address] [place] [address] 03/12/2025 Provider Migration Plan Of Treatment No Information
--- OUTSIDE RECORDS SUMMARY | 2025-03-23 21:00 | XMS_ITS | Patient Health Record ---
Author Organization [facility] Address [address] [place], [place] [id number] Care Team Providers Care Desulphurizer Operator Name Role Phone DOV MCALLISTER Unavailable [phone] Jan Sony Unavailable Unavailable Allergies No Known Allergies Reason For Referral No Information Medications Medication SIG (Take, Route, Frequency, Duration) Notes Start Date End Date Status Amoxicillin-Pot Clavulanate 500-125 MG Tablet 1 tablet Orally every 12 hrs; Duration: 10 days Active Immunizations Vaccine Route Administration Date Status Comme nts Tdap Unknown 10/03/2008 Administered Tdap Unknown 10/03/2008 Administered Pneumococcal polysaccharide PPV23 Unknown 02/27/2010 Administered Pneumococcal polysaccharide PPV23 Unknown 02/27/2010 Administered Pneumococcal polysaccharide PPV23 Unknown 04/25/2020 Administered Pneumococcal polysaccharide PPV23 Unknown 04/25/2020 Administered Pneumococcal conjugate PCV 13 Unknown 02/27/2010 Admini stered Pneumococcal conjugate PCV 13 Unknown 02/27/2010 Admini stered Pneumococcal conjugate PCV 13 Unknown 05/24/2024 Refuse d Moderna Covid-19 Vaccine 1st dose Unknown 07/06/2020 Administered Moderna Covid-19 Vaccine 1st dose Unknown 07/06/2020 Administered Moderna Covid-19 Vaccine 1st dose Unknown 08/03/2020 Administered Moderna Covid-19 Vaccine 1st dose Unknown 08/03/2020 Administered Influenza, unspecified formulation Unknown 02/20/2015 Administered Influenza, unspecified formulation Unknown 02/20/2015 Administered Influenza, unspecified formulation Unknown 03/03/2015 Administered Influenza, unspecified formulation Unknown 03/03/2015 Administered Influenza, unspecified formulation Unknown 03/03/2015 Administered Influenza, unspecified formulation Unknown 03/03/2015 Administered Influenza, unspecified formulation Unknown 02/25/2018 Administered Influenza, unspecified formulation Unknown 02/25/2018 Administered Influenza, unspecified formulation Unknown 02/25/2018 Administered Influenza, unspecified formulation Unknown 02/25/2018 Administered Influenza, unspecified formulation Unknown 03/27/2020 Administered Influenza, unspecified formulation Unknown 03/27/2020 Administered Influenza, unspecified formulation Unknown 01/13/2024 Not Administered Influenza, unspecified formulation Unknown 01/13/2024 Not Administered Influenza, unspecified formulation Unknown 08/30/2024 Not Administered Influenza, unspecified formulation Unknown 08/30/2024 Not Administered Influenza, quadrivalent, spl it, preservative free, 3 years or older Unknown 03/03/2016 Administered Influenza, quadrivalent, spl it, preservative free, 3 years or older Unknown 03/03/2016 Administered Influenza, quadrivalent, spl it, preservative free, 3 years or older Unknown 02/25/2018 Administered Influenza, quadrivalent, spl it, preservative free, 3 years or older Unknown 02/25/2018 Administered Influenza, high-dose seasona l, quadrivalent, preservative free >65 yrs Unknown 03/27/2020 Administered Influenza, high-dose seasona l, quadrivalent, preservative free >65 yrs Unknown 03/27/2020 Administered Influenza, high-dose seasona l, quadrivalent, preservative free >65 yrs Unknown 03/21/2022 Administered Influenza, high-dose seasona l, quadrivalent, preservative free >65 yrs Unknown 03/21/2022 Administered Influenza, high-dose seasona l, quadrivalent, preservative free >65 yrs Unknown 02/24/2023 Administered Influenza, high-dose seasona l, quadrivalent, preservative free >65 yrs Unknown 02/24/2023 Administered Influenza, high dose seasonal Unknown 05/24/2024 Refuse d Influenza (split), 3 yrs and above Unknown 03/09/2013 Administered Influenza (split), 3 yrs and above Unknown 03/09/2013 Administered Influenza (split), 3 yrs and above Unknown 03/09/2013 Administered Influenza (split), 3 yrs and above Unknown 03/09/2013 Administered Influenza (split), 3 yrs and above Unknown 03/03/2015 Administered Influenza (split), 3 yrs and above Unknown 03/03/2015 Administered Social History Social History Additional Details Category Social Info Options Details Migrated Social History Migrated Social History History of tobacco use : , Smoking Status : Never smoked , Alcohol intake : Vital Signs Height-cm 154.94 cm 12/08/2024 Weight-kg 97.52 kg 12/08/2024 Height 61.0 in 12/08/2024 Weight 215 lbs 12/08/2024 BMI 40.62 kg/m2 12/08/2024 Encounters Encounter Location Date Provider Diagnosis [facility] [address] [place], [place] [id number] 05/24/2024 DOV SNOOK Tinea unguium B35.1 ; Acquired keratosis [keratoderma] palmaris et plantaris L85.1 ; Atherosclerosis of [place] arteries of extremities with intermittent claudication, bilateral legs I70.213 ; Type 2 diabetes mellitus with other circulatory complications E11.59 ; Pain in right foot M79.671 and Pain in left foot M79.672 [facility] [address] [place], [place] [id number] 09/08/2024 DOV SNOOK Tinea unguium B35.1 ; 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 ; Pain in right toe(s) M79.674 ; Pain in left toe(s) M79.675 ; Atherosclerosis of [place] arteries of extremities with intermittent claudication, bilateral legs I70.213 and Type 2 diabetes mellitus with other circulatory complications E11.59 [facility] [address] [place], [place] [id number] 09/15/2024 DOV SNOOK Atherosclerosis of [place] arteries of extremities with intermittent claudication, bilateral legs I70.213 ; 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 ; Type 2 diabetes mellitus with other circulatory complications E11.59 and Fungal infection of nail B35.1 [facility] [address] [place], [place] [id number] 11/01/2024 DOV SNOOK Atherosclerosis of [place] arteries of extremities with intermittent claudication, bilateral legs I70.213 ; Non-pressure chronic ulcer of left ankle limited to breakdown of skin L97.321 ; Type 2 diabetes mellitus with other circulatory complications E11.59 and Fungal infection of nail B35.1 [facility] [address] [facility] [address] [place], [place] [id number] 12/08/2024 DOVYOLI VELASQUEZK Non-pressure chronic ulcer of left ankle limited to breakdown of skin L97.321 ; Atherosclerosis of [place] arteries of extremities with intermittent claudication, bilateral legs I70.213 and Type 2 diabetes mellitus with other circulatory complications E11.59 [facility] [address] [place], [place] [id number] 10/28/2024 DOV SNSUSANK [facility] [address] [place], [place] [id number] 11/07/2024 DOV MCALLISTER Assessments Encounter Date Diagnosis (ICD Code) Assessment Notes Treatment Notes Treatment Clinical Notes Section Notes 05/24/2024 Tinea unguium (ICD-10 - B35.1) Nails 1-5 Bilateral were debrided extensively with nail nippers and emery board, reducing length and girth to pink healthy tissue with any subungual debris and necrotic tissue removed 05/24/2024 Acquired keratosis [keratoderma] palmaris et plantaris (ICD-10 - L85.1) A total of 2 corns or calluses, as described in the note above, were cut and pared utilizing a #15 blade 09/08/2024 Tinea unguium (ICD-10 - B35.1) NAIL DEBRIDEMENT: Nails 1-5 Bilateral were debrided extensively with nail nippers and emery board, reducing length and girth to pink healthy tissue with any subungual debris and necrotic tissue removed 09/08/2024 Non-pressure chronic ulcer of left ankle with fat layer exposed (ICD-10 - L97.322) Ulcer Plan of Care: The treatment goals are closure of the ulceration within an appropriate time frame. This will require regular debridements every 2 weeks until skin closure has been met. The patient will come in sooner than 2 weeks if the wound develops any signs of infection or deteriorates. The plan of care will be reviewed every month. If there is no change in the size of the wound, we will re evaluate debridement schedule, topical medications being used, as well as modify techniques for offloading the wound. SCHULTZ [employer]ING SYSTEM Grade 0: Pre-ulcerative Lesion, healed ulcers, presence of bone deformity Grade 1: Superficial Ulcer without subcutaneous tissue involvement Grade 2: Penetration through the subcutaneous tissue (may expose bone, tendon, ligament or joint capsule) Grade 3: Osteitis, abscess or osteomyelitis Grade 4: Gangrene of the foot. Based on clinical findings, the patient has the following grade ulceration: 2 09/15/2024 Atherosclerosis of [place] arteries of extremities with intermittent claudication, bilateral legs (ICD-10 - I70.213) 09/15/2024 Non-pressure chronic ulcer of left ankle with fat layer exposed (ICD-10 - L97.322) Ulcer Plan of Care: The treatment goals are closure of the ulceration within an appropriate time frame. This will require regular debridements every 2 weeks until skin closure has been met. The patient will come in sooner than 2 weeks if the wound develops any signs of infection or deteriorates. The plan of care will be reviewed every month. If there is no change in the size of the wound, we will re evaluate debridement schedule, topical medications being used, as well as modify techniques for offloading the wound. SCHULTZ [employer]ADING SYSTEM Grade 0: Pre-ulcerative Lesion, healed ulcers, presence of bone deformity Grade 1: Superficial Ulcer without subcutaneous tissue involvement Grade 2: Penetration through the subcutaneous tissue (may expose bone, tendon, ligament or joint capsule) Grade 3: Osteitis, abscess or osteomyelitis Grade 4: Gangrene of the foot. Based on clinical findings, the patient has the following grade ulceration: 2 11/01/2024 Atherosclerosis of [place] arteries of extremities with intermittent claudication, bilateral legs (ICD-10 - I70.213) 11/01/2024 Non-pressure chronic ulcer of left ankle limited to breakdown of skin (ICD-10 - L97.321) Ulcer Plan of Care: The treatment goals are closure of the ulceration within an appropriate time frame. This will require regular debridements every 2 weeks until skin closure has been met. The patient will come in sooner than 2 weeks if the wound develops any signs of infection or deteriorates. The plan of care will be reviewed every month. If there is no change in the size of the wound, we will re evaluate debridement schedule, topical medications being used, as well as modify techniques for offloading the wound. SCHULTZ [employer]ING SYSTEM Grade 0: Pre-ulcerative Lesion, healed ulcers, presence of bone deformity Grade 1: Superficial Ulcer without subcutaneous tissue involvement Grade 2: Penetration through the subcutaneous tissue (may expose bone, tendon, ligament or joint capsule) Grade 3: Osteitis, abscess or osteomyelitis Grade 4: Gangrene of the foot. Based on clinical findings, the patient has the following grade ulceration: 1 12/08/2024 Atherosclerosis of [place] arteries of extremities with intermittent claudication, bilateral legs (ICD-10 - I70.213) 12/08/2024 Non-pressure chronic ulcer of left ankle limited to breakdown of skin (ICD-10 - L97.321) Ulcer Resolved: The nonviable tissue from the ulcer site was debrided down to normal appearing tissue. Advised patient to monitor this area for recurrence. Patient may discontinue local wound care. 12/08/2024 Type 2 diabetes mellitus with other circulatory complications (ICD-10 - E11.59) 09/15/2024 Type 2 diabetes mellitus with other circulatory complications (ICD-10 - E11.59) 11/01/2024 Type 2 diabetes mellitus with other circulatory complications (ICD-10 - E11.59) 09/08/2024 Pain in right toe(s) (ICD-10 - M79.674) 05/24/2024 Atherosclerosis of [place] arteries of extremities with intermittent claudication, bilateral legs (ICD-10 - I70.213) 05/24/2024 Type 2 diabetes mellitus with other circulatory complications (ICD-10 - E11.59) 09/08/2024 Pain in left toe(s) (ICD-10 - M79.675) 09/15/2024 Fungal infection of nail (ICD-10 - B35.1) 11/01/2024 Fungal infection of nail (ICD-10 - B35.1) NAIL DEBRIDEMENT: Nails 1-5 Bilateral were debrided extensively with nail nippers and emery board, reducing length and girth to pink healthy tissue with any subungual debris and necrotic tissue removed 05/24/2024 Pain in right foot (ICD-10 - M79.671) 09/08/2024 Atherosclerosis of [place] arteries of extremities with intermittent claudication, bilateral legs (ICD-10 - I70.213) 09/08/2024 Type 2 diabetes mellitus with other circulatory complications (ICD-10 - E11.59) Diabetic Foot Care: The patient was educated on diabetes and the lower extremity. The patient was instructed to check his feet daily to report any problems or signs of infection immediately. The patient was provided written information on Diabetic Foot Care as well as the Amputation Prevention Guide. 05/24/2024 Pain in left foot (ICD-10 - M79.672) Plan Of Treatment No Information Insurance Providers Payer Name Payer Address Payer Phone Subscriber Number Group Number Insured Name Patient Relationship to Insured Coverage Start Date Coverage End Date [employer] [address] [place] [phone] [id number] HIRAM GROVES Self - patient is the insured
[2025-03-23] MEDS: Please add drug allergy info to patient profile. 1 EACH XX (21:27)
--- NOTE | 2025-03-23 23:28 | PC.NURSE ---
PATIENT ARRIVED ON 3 MEDSURG AT 9715
--- NOTE | 2025-03-23 23:31 | PC.NURSE ---
Addendum entered by Alexandria Marquez RN 03/24/25 03:22: Note: per pt, her pacemaker not compatible for MRI. Hospitalist made aware. Addendum entered by Alexandria Marquez RN 03/24/25 03:14: 0100: Pt denies SoB at this time. 0300: Pt refused CPAP; back on 2LNC Addendum entered by Alexandria Marquez RN 03/23/25 23:49: 2340: pt denies Chest pain; still with SoB, ABG drawn Original Note: 2320: Pt complained about feeling SoB, NC 2L applied; hospitalist notified; STAT ABG order
[2025-03-23 23:50] LABS: Alveolar/Arterial O2 Gradient 100.7 mmHg; Fractional Inspired Oxygen 28 %; HCO3 ABG 21.2 mEq/l (22.0-26.0); Oxygen Content ABG 19.0 %vol (16.0-22.0); Oxygen Saturation ABG 95.1 % (95.0-100.0); PCO2 ABG 27.4 mmHg (35.0-45.0); PO2 ABG 66.6 mmHg (80.0-100.0); PO2 FiO2 Ratio Arterial Blood 2.38 %
[2025-03-23 23:59] LABS: Liters per Minute 2.0 LPM; Site Drawn RIGHT BRACHIAL
[2025-03-24] VITALS (13 sets, daily range): BP systolic 146–189; BP diastolic 65–87; PULSE 60–86; RESP 13–33; TEMP 35.9–36.4; O2SAT 94–99
--- NOTE | 2025-03-24 | ECHO_ITS ---
Patient Info Name: Gayathri Astudillo Age: 70 years : 1955 Gender: Female Ht: 61 in Wt: 169 lbs BSA: 1.85 m2 HR: 61 bpm BP: 146 / 75 mmHg Technical Quality: Good Exam Date: 03/24/2025 11:38 AM Patient Status: I Admit Date: 03/23/2025 Exam Type: CA echo doppler w bubble study Complete two-dimensional, color flow and Doppler transthoracic echocardiogram is performed with agitated saline. Staff Referring Physician: Susy Duffy NP Area Director: Jadyn Jimenez Attending Provider: Lexi Jeff Contrast/Agitated Saline Contrast/Ag. Saline: Agitated Saline Amount: 20.00 ml Summary 1. Left ventricular chamber dimension is normal. 2. Left ventricular systolic function is normal, estimated at 60-65. 3. There is moderate concentric increased left ventricular wall thickness. 4. The left ventricular diastolic function is grade III diastolic dysfunction. 5. E/e' 16 is elevated. 6. Linear artifact in right ventricle suggestive of catheter(s), pacemaker lead(s), or ICD lead(s). 7. Left atrial chamber dimension is moderately enlarged. 8. Linear artifact in the right atrium suggestive of catheter(s), pacemaker lead(s), or ICD lead(s). 9. There is moderate aortic valve sclerosis. 10. There is mild to moderate aortic valve regurgitation. 11. The mitral valve has a moderately calcified annulus. 12. There is moderate mitral valve regurgitation. 13. There is trace tricuspid valve regurgitation. 14. Moderate pulmonary hypertension, estimated pulmonary arterial systolic pressure is 55 mmHg. Left Ventricle E/e' 16 is elevated. Left ventricular chamber dimension is normal. Left ventricular systolic function is normal, estimated at 60-65. There is moderate concentric increased left ventricular wall thickness. The left ventricular diastolic function is grade III diastolic dysfunction. Right Ventricle Right ventricular chamber dimension is normal. Right ventricular systolic function is normal. Linear artifact in right ventricle suggestive of catheter(s), pacemaker lead(s), or ICD lead(s). Left Atria Left atrial chamber dimension is moderately enlarged. Right Atria Right atrial chamber dimension is normal. Linear artifact in the right atrium suggestive of catheter(s), pacemaker lead(s), or ICD lead(s). Atrial Septum Intact interatrial septum visualized by 2D and agitated saline imaging. Agitated saline injection with and without valsalva maneuver opacified right side cardiac chambers without shunt to left side cardiac chambers. Aortic Valve The aortic valve is trileaflet. There is moderate aortic valve sclerosis. There is no aortic valve stenosis. There is mild to moderate aortic valve regurgitation. Pulmonic Valve There is no pulmonic regurgitation. Mitral Valve The mitral valve has a moderately calcified annulus. There is no mitral valve stenosis. There is moderate mitral valve regurgitation. Tricuspid Valve There is trace tricuspid valve regurgitation. Moderate pulmonary hypertension, estimated pulmonary arterial systolic pressure is 55 mmHg. Pericardium/Pleural There is no pericardial effusion. Inferior Vena Cava Normal inferior vena cava with >50% collapse upon inspiration consistent with normal right atrial pressure, 5 mmHg. Aorta The aortic root size at the sinus of Valsalva is normal. Left Ventricular Outflow Tract Name Value Normal LVOT 2D LVOT Diameter 2.0 cm LVOT Doppler LVOT Peak Velocity 103 cm/s LVOT Peak Gradient 4 mmHg LVOT Mean Gradient 2 mmHg LVOT VTI 23 cm LVOT Stroke Volume 70 ml LVOT CO 4.3 l/min LVOT CI 2.3 l/min/m2 Pulmonic Valve Name Value Normal RVOT Doppler RVOT Peak Velocity 72 cm/s RVOT Peak Gradient 2 mmHg PV Doppler PV Peak Velocity 100 cm/s PV Peak Gradient 4 mmHg Mitral Valve Name Value Normal MV Diastolic Function MV E Peak Velocity 115 cm/s MV A Peak Velocity 41 cm/s MV E/A 2.8 MV Decel Time (PW) 188 ms MV Annular TDI MV E/e' (Septal) 21.7 MV E/e' (Lateral) 12.9 MV E/e' (Average) 17.3 Tricuspid Valve Name Value Normal TV Regurgitation Doppler TR Peak Velocity 352 cm/s TR Peak Gradient 50 mmHg Estimated PAP/RSVP RA Pressure 5 mmHg <=5 PA Systolic Pressure 55 mmHg <36 RV Systolic Pressure 55 mmHg <36 Aortic Valve Name Value Normal AV Doppler AV Peak Velocity 142 cm/s AV Peak Gradient 8 mmHg AV Area (Cont Eq Andrew) 2.2 cm2 AV DI (Andrew) 0.73 AV Regurgitation 2D LVOT Area 3.0 cm2 Ventricles Name Value Normal LV Dimensions 2D/MM IVS Diastolic Thickness (2D) 1.2 cm 0.6-1.0 LVID Diastole (2D) 3.7 cm 3.8-5.2 LVIW Diastolic Thickness (2D) 1.4 cm 0.6-0.9 LVID Systole (2D) 2.7 cm 2.2-3.5 LVOT Diameter 2.0 cm LV Mass (2D Cubed) 170.35 g 67.00-162.00 LV Mass Index (2D Cubed) 92 g/m2 43-95 Relative Wall Thickness (2D) 0.74 <=0.42 LV Fractional Shortening/Ejection Fraction 2D/MM LV Fractional Shortening (2D) 28 % 27-45 LV EF (2D Teichholz) 55 % LV Diastolic Volume (4C MOD) 84 ml LV EF (4C MOD) 62 % LV Diastolic Volume (2C MOD) 91 ml LV EF (2C MOD) 54 % LV Diastolic Volume (BP MOD) 88 ml 46-106 LV Diastolic Volume Index (BP MOD) 48 ml/m2 29-61 LV Systolic Volume (BP MOD) 36 ml 14-42 LV Systolic Volume Index (BP MOD) 20 ml/m2 8-24 LV EF (BP MOD) 59 % 54-74 LV Diastolic Length (4C) 7.2 cm LV Systolic Length (4C) 6.5 cm LV Stroke Volume (4C MOD) 52 ml Atria Name Value Normal LA Dimensions LA Volume (4C A-L) 80 ml LA Volume (BP A-L) 59 ml RA Dimensions RA Systolic Major [place] Length (4C) 6.0 cm 2.2-2.8 RA Area (4C) 14.9 cm2 <=18.0 Report Signatures
[2025-03-24 00:04] LABS: Add Urine Microscopic? YES; Appearance Urine Clear (Clear); Glucose Urine UA 3+ mg/dL (Negative); Leukocyte Esterase Ur Trace LEU/UL (Negative); Nitrate Urine Negative (Negative); Non Pathogenic Casts 0-2; Specific Grav Ur 1.019 (1.001-1.035)
[2025-03-24 00:49] LABS: Hemoglobin A1C 5.6 % (<5.7)
[2025-03-24] MEDS: ATORVASTATIN 40 MG TABLET 80 MG PO ×2 (00:50→20:22)
[2025-03-24] MEDS: LEVOTHYROXINE SODIUM 100 MCG TABLET PO (05:19)
--- NOTE | 2025-03-24 06:02 | PM.IMHP ---
H&P: HPI History of Present Illness Date/Time: 03/24/25 06:02 Chief Complaint: Suspected CVA versus TIA Narrative: This is a 70-year-old female patient who resides the [facility]. The patient came to the ER from [facility] due to a sudden on set of mental clarity. The patient stated that she cannot remember the channels on the TV and could not manage the TV remote. She also had adhesion cannot remember the name of the nurse for approximately 10 minutes. After 10 minutes everything came back to her. By time she came to the emergency room she was asymptomatic. She has had a history of having a CVA with left side effect. She has minimal movement to the left hand and left lower extremity from previous CVA. The patient stated that she has been so weak lately that she has to be in a will wheelchair. She stated that normally she uses a walker or cane. The patient is on Eliquis. Arterial blood gases pH 7.506, CO2 is 27.4 PO2 66.6. Urine shows 3+ urine glucose, 1+ ketones and trace leukocyte esterase. Chest x-ray was read as no acute pulmonary findings. Head CT was read as no acute intracranial findings. She was given hydralazine in the emergency room. Ice blood pressure in the emergency room was 206/88 and 192/90. The patient has no new neuro deficits. The patient is being admitted to observation status on the date of service of 03/24/2025. Review of Systems Constitutional: Constitutional: Reports as per HPI and Reports no additional constitutional complaints Eyes: Eyes: Reports as per HPI and Reports no additional eye complaints ENT: Reports system reviewed and no additional complaints, except as documented and Reports Normal hearing present Cardiovascular: Cardiovascular: Reports no additional cardiovascular complaints Respiratory: Respiratory: Reports as per HPI and Reports no additional respiratory complaints Gastrointestinal: Gastrointestinal: Reports as per HPI and Reports no additional gastrointestinal complaints Genitourinary: Genitourinary: Reports no additional female genitourinary complaints Musculoskeletal: Musculoskeletal: Reports no additional musculoskeletal complaints Integumentary/Breasts: Skin/Breast: Reports system reviewed and no additional complaints, except as docu Neurologic: Reports system reviewed and no additional complaints, except as documented and Reports Normal hearing present Psychiatric: Psychiatric: Reports no additional psychiatric complaints and Reports as per HPI Hematologic/Lymphatic: Hematologic/Lymphatic: Reports no additional hematologic/lymphatic complaints Allergic/Immunologic: Allergic/Immunologic: Reports no additional allergic/immunologic complaints [facility] Past Medical History Medical History (Updated 03/24/25 @ 06:43 by Susy Duffy APRN) Cardiac pacemaker in situ Insomnia Heart failure Hypothyroidism Obstructive sleep apnea Hyperlipidemia Hypertension DM2 (diabetes mellitus, type 2) Hemiparesis affecting left side as late effect of cerebrovascular accident CVA (cerebral vascular accident) From a CVA 16 years ago and another CVA 1 year ago Family History Family History Father Myocardial infarct Grandparent Myocardial infarct Cancer Social History Social History (Updated 03/24/25 @ 06:27 by Susy Duffy APRN) Social History: She has 1 stepson and is . She currently lives at [facility]. Code status: Modified code Smoking status: Never smoker Alcohol intake: current Substance use: former Lack of Transportation: No Lack of Food: Never True Current Housing: I Have Housing Concerned About Future Housing: No Difficulty Paying Gas/Electric Bills: No Difficulty Paying for Meds: No Currently Unemployed: No Education: Master's Degree or Higher Difficulty w/ Childcare or Family Care: No Spiritual care concerns: No Meds Home Medications and Allergies Home Medications ?Medication ?Instructions ?Recorded ?Confirmed ?Type acetaminophen 325 mg capsule 650 mg PO Q6H PRN pain 03/23/25 03/23/25 History apixaban 5 mg tablet (Eliquis) 5 mg PO BID 03/23/25 03/23/25 History atorvastatin 40 mg tablet 80 mg PO HS 03/23/25 03/23/25 History dapagliflozin propanediol 10 mg 10 mg PO DAILY 03/23/25 03/23/25 History tablet (Farxiga) diphenhydramine HCl 25 mg capsule 25 mg PO HS PRN insomnia 03/23/25 03/23/25 History (Aler-Cap) docusate sodium 100 mg capsule 100 mg PO BID PRN constipation 03/23/25 03/23/25 History (Col-Rite) ergocalciferol (vitamin D2) 1,250 1,250 mcg PO WEEKLY 03/23/25 03/23/25 History mcg (50,000 unit) capsule esomeprazole magnesium 40 mg 40 mg PO DAILY 03/23/25 03/23/25 History capsule,delayed release (Nexium) glipizide 5 mg tablet 5 mg PO DAILY 03/23/25 03/23/25 History levothyroxine 100 mcg tablet 100 mcg PO DAILY 03/23/25 03/23/25 History lisinopril 5 mg tablet 15 mg PO DAILY 03/23/25 03/23/25 History meclizine 12.5 mg tablet 12.5 mg PO DAILY 03/23/25 03/23/25 History melatonin 3 mg capsule 3 mg PO HS PRN sleep 03/23/25 03/23/25 History metformin 1,000 mg tablet 1,000 mg PO DAILY 03/23/25 03/23/25 History polyethylene glycol 3350 17 17 g PO DAILY PRN constipation 03/23/25 03/23/25 History gram/dose oral powder (ClearLax) triamcinolone acetonide 0.1 % 1 applic topical DAILY PRN skin 03/23/25 03/23/25 History topical cream irritation Allergies Allergy/AdvReac Type Severity Reaction Status Date / Time furosemide Allergy Intermediate gout Verified 03/23/25 23:58 felodipine (From Plendil) Allergy Mild Rash Verified 03/23/25 23:58 Vital Signs Vital Signs - 24 hr 03/23/25 19:10 03/23/25 19:14 03/23/25 19:15 Temperature 98.4 F Pulse Rate 66 60 60 Respiratory Rate 20 18 21 H Blood Pressure 207/85 H 207/85 H 206/88 H Pulse Oximetry 95 96 95 Oxygen Delivery Room Air 03/23/25 19:30 03/23/25 19:45 03/23/25 19:56 Temperature Pulse Rate 60 60 Respiratory Rate 19 19 Blood Pressure 203/82 H 187/132 H Pulse Oximetry 19 L 95 92 Oxygen Delivery 03/23/25 20:29 03/23/25 20:30 03/23/25 20:31 Temperature Pulse Rate Respiratory Rate Blood Pressure 192/90 H Pulse Oximetry 95 95 94 Oxygen Delivery 03/23/25 20:45 03/23/25 21:00 03/23/25 21:23 Temperature Pulse Rate 60 60 Respiratory Rate 23 H 20 Blood Pressure Pulse Oximetry 95 Oxygen Delivery 03/23/25 22:06 03/23/25 22:15 03/23/25 22:16 Temperature Pulse Rate 83 60 60 Respiratory Rate 20 14 16 Blood Pressure 161/73 H Pulse Oximetry 94 96 Oxygen Delivery 03/23/25 22:57 03/24/25 00:00 03/24/25 00:10 Temperature 97.2 F L Pulse Rate 60 73 Respiratory Rate 20 Blood Pressure 186/81 H 181/65 H Pulse Oximetry 96 Oxygen Delivery 03/24/25 04:00 03/24/25 05:40 Temperature 97.3 F L Pulse Rate 69 60 Respiratory Rate 14 Blood Pressure 146/75 H Pulse Oximetry 98 Oxygen Delivery Exam Const: General: cooperative, healthy appearing, comfortable, no acute distress, well developed, awake, Physically active, average body habitus and well nourished Nutritional Appearance: average body habitus and well nourished Orientation/consciousness: oriented to person and oriented to place HENMT: Head: normal to inspection, No palpable skull fracture present, normocephalic, atraumatic and abrasion Ears: hearing grossly normal bilaterally Eyes: General: appearance normal, both eyes and all related structures Alignment and Position: alignment normal Periorbital: periorbital findings normal Cornea: corneas normal Pupils: Equal, round and reactive pupils present and Pupil accommodation reflex normal EOM: EOMs intact bilaterally Neck: Neck: normal visual inspection and full ROM Chest: Chest palpation & inspection: normal inspection of the chest Resp: Effort & Inspection: normal respiratory effort Auscultation: clear to auscultation bilaterally Percussion: percussion normal Cardio: Palpation: normal PMI Rate: regular rate Rhythm: regular rhythm Heart sounds: S1 normal heart sound present and S2 normal heart sound present Peripheral pulses: Peripheral pulses 2+ throughout GI: Inspection: normal to inspection Percussion: Yes normal to percussion Auscultation: normal bowel sounds Rectal Exam: deferred : General: Yes no CVA tenderness Back/Spine/Pelvis: Back: no CVA tenderness Skin: General skin exam: normal color Lesions: no lesions Rashes: no rashes Trauma: no lacerations or abrasions Wounds: no wounds Hair: normal Nails: normal Neuro: General: oriented to person and oriented to place Cranial nerves: Yes Equal, round and reactive pupils present and Yes Normal hearing present Other: She has left upper and left lower affect from previous CVA. She is able to hospital admitting clerk my hand on the left side but is very weak in this is chronic. 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 Her speech is clear but she is forgetful at times. She does do some word searching. She stated that this is all old. Extrem: General: normal to inspection Right upper extremity: normal to inspection and shoulder/upper arm Left upper extremity: normal to inspection and shoulder/upper arm Right lower extremity: normal to inspection Left lower extremity: normal to inspection Psych: Appearance: grossly normal Mental Status: mental status grossly normal Speech and movement: Normal speech and movement present Affect: normal affect Attitude: cooperative Thought process: Normal thought process present Thought content: Yes Normal thought content present Insight: Good insight present (Psych) and Limited insight present (Psych) Judgement: Limited judgement present (Psych) Other: She is forgetful at times. H&P: Results Labs Labs: Short CBC 03/23/25 Range/Units 19:13 WBC 7.5 (4.5-10.0) K/mm3 Hgb 13.3 (12.0-15.0) g/dL Hct 41.1 (37.0-47.0) % Plt Count 213 (150-375) k/mm3 BMP 03/23/25 19:13 Sodium 139 Potassium 3.9 Chloride 106 Carbon Dioxide 22 BUN 18 H Creatinine 0.60 L Glucose 123 H Calcium 9.4 Cardiac Enzymes 03/23/25 Range/Units 19:13 Troponin I < 0.012 (0.000-0.034) ng/mL Liver Function 03/23/25 Range/Units 19:13 Total Bilirubin 0.7 (0.2-1.3) mg/dL AST 19 (14-36) U/L ALT 18 (6-35) U/L Alkaline Phosphatase 87 (38-126) U/L Albumin 4.0 (3.5-5.1) g/dL Urine 03/23/25 Range/Units 23:52 Urine Color Yellow (Yellow) Urine Appearance Clear (Clear) Urine pH 8.0 (5.0-9.0) Ur Specific [place] 1.019 (1.001-1.035) Urine Protein Negative (Negative) mg/dL Urine Glucose (UA) 3+ H (Negative) mg/dL ECG Interpretation: Intervals [place] Rate: 60 P: 0 NM: 0 QRS: -75 QRSD: 178 T: 101 QT: 531 QTc: 531 Interpretive Statements ELECTRONIC VENTRICULAR PACEMAKER BASELINE ARTIFACT- I, III, AVR, AVL, V1-V3 NO FURTHER INTERPRETATION IS POSSIBLE ATYPICAL ECG No previous ECG available for comparison Electronically Signed On 03-24-2025 06:15:07 CDT by Sergio Moe D.O. Imaging CT scan - head: Radiologist's impression: ITS Impressions Head CT 03/23/25 19:07 IMPRESSION: 1. No acute intracranial findings. Chest X-Ray 03/23/25 19:54 IMPRESSION: No acute pulmonary findings. Assessment and Plan Assessment and plan (1) Transient global amnesia: Code(s): G45.4 - Transient global amnesia Status: Acute Assessment and Plan: -the patient resides at [facility]. She had forgotten how to use her remote control and she also had for gotten the name of the nurse that was taking care of her. She has had multiple CVAs in the past as well as TIAs. -the head CT shows nothing acute. The patient has Hemiparesis to the left side from a previous CVA. -the patient is on Eliquis please continue with that. -continue with neuro checks as per protocol -the patient tells me that the hemiparesis on the left side was from previous CVA. -PT OT evaluation -neurology consultation greatly be appreciated. -unable to perform an MRI due to pacemaker in-situ. -CT of the brain and neck have been ordered. -continue with telemetry -an echo has been ordered. - stroke score of 4 - tia vs global amnesia (2) Hypertension: Code(s): I10 - Essential (primary) hypertension Status: Acute Assessment and Plan: -p.r.n. hydralazine. -continue with lisinopril and monitor kidney function. Current blood pressure is 146/75. (3) Heart failure: Code(s): I50.9 - Heart failure, unspecified Status: Acute Assessment and Plan: -an echo has been ordered. --continue with Farxiga (4) Cardiac pacemaker in situ: Code(s): Z95.0 - Presence of cardiac pacemaker Status: Acute Assessment and Plan: -the patient is on telemetry. -may consider interrogation of the pacemaker. (5) Hyperlipidemia: Code(s): E78.5 - Hyperlipidemia, unspecified Status: Acute Assessment and Plan: -continue with atorvastatin (6) DM2 (diabetes mellitus, type 2): Code(s): E11.9 - Type 2 diabetes mellitus without complications Status: Acute Assessment and Plan: -continue with atrial for statin -continue with Farxiga -Accu-Cheks AC and HS with sliding scale -hold metformin while inpatient -glipizide on hold but may resume when feasible -the patient had 3+ glucose in her urine as well as 1+ ketones. -her blood sugar is 178. (7) Hypothyroidism: Code(s): E03.9 - Hypothyroidism, unspecified Status: Acute Assessment and Plan: -continue with levothyroxine (8) Obstructive sleep apnea: Code(s): G47.33 - Obstructive sleep apnea (adult) (pediatric) Status: Acute Assessment and Plan: -CPAP/BiPAP as per home settings. Quality VTE Prophylaxis VTE prophylaxis: pharmacologic ordered Stroke Scale Stroke scale date:: 03/23/25 1a Level of conciousness: alert-0 1b Level of consciousness: answers both correctly-0 1c Level of consciousness: obeys both correctly-0 2 Best gaze: normal-0 3 Visual: no visual loss-0 4 Facial palsy: normal-0 5a Motor: left arm: some effort/gravity-2 5b Motor: right arm: no drift-0 6a Motor: left leg: drift-1 6b Motor: right leg: no drift-0 7 Limb ataxia: present in one limb-1 8 Sensory: normal-0 9 Best language: no aphasia-0 10 Dysarthria: normal-0 11 Extinction and inattention: no abnormality-0 Level:: 4
--- NOTE | 2025-03-24 07:16 | PM.IMPN ---
Progress Note: A&P Assessment and Plan (1) Transient global amnesia: Code(s): G45.4 - Transient global amnesia Status: Acute Assessment and Plan: She has had multiple CVAs with left sided deficits in the past as well as TIAs. Uses a wheelchair at baseline and currently working on using a walker. Sudden onset of altered mental status/amnesia where the patient could not remember what a remote was and developed word salad that lasted approximately 10 min before resolving. No associated weakness/numbness, slurred speech, or facial droop. - Head CT: unremarkable - Head/neck CTA: Old infarcts involving the right basal ganglia, posterior limb right internal capsule, right thalamus, and right frontoparietal region. 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 62% stenosis of the proximal right ICA and 49% stenosis of the proximal left ICA - MRI cannot be obtained due to pacemaker - Echo: LVEF 60-65% with grade III diastolic dysfunction and moderate pulmonary htn - Continue high intensity statin and eliquis BID - Initiate stroke protocol, NIH Stroke Scale, neuro's q.4 hours - Monitor CBC, CMP, magnesium, troponin, and lipid profile - Monitor blood pressure - Telemetry monitoring. Pacemaker to be interrogated for TIA concern - Monitor blood glucose - PT/OT eval and treat - Neurology consulted, appreciate assistance and recommendations (2) Hypertension: Code(s): I10 - Essential (primary) hypertension Status: Acute Assessment and Plan: Chronic, continue home medications - lisinopril 15 mg daily - blood pressures reviewed and remain stable, continue home medications (3) Heart failure: Code(s): I50.9 - Heart failure, unspecified Status: Acute Assessment and Plan: Chronic Echo ordered for TIA/amnesia workup showed LVEF 60-65% with grade III diastolic dysfunction and moderate pulmonary htn Patient endorsed increased shortness of breath overnight, placed on 1L NC with stable saturations however no documentation of hypoxia Chest XR unremarkable however CTA head/neck showed pulmonary edema and small effusions Patient denies any shortness of breath or cough. Saturations remain stable, will wean patient as tolerated to maintain spo2 >90. Consider diuretic, reassess tomorrow for need. (4) Cardiac pacemaker in situ: Code(s): Z95.0 - Presence of cardiac pacemaker Status: Acute Assessment and Plan: -the patient is on telemetry. - pacemaker to be interrogated for TIA concern (5) DM2 (diabetes mellitus, type 2): Code(s): E11.9 - Type 2 diabetes mellitus without complications Status: Acute Assessment and Plan: - hypoglycemia protocol - POC blood glucose ACHS - home medication - Farxiga, glipizide, and metformin - correct regimen ordered - low dose TIDWM and farxiga - A1C 5.6 (6) Hypothyroidism: Code(s): E03.9 - Hypothyroidism, unspecified Status: Acute Assessment and Plan: -continue with levothyroxine (7) Obstructive sleep apnea: Code(s): G47.33 - Obstructive sleep apnea (adult) (pediatric) Status: Acute Assessment and Plan: -CPAP/BiPAP as per home settings. Time Spent With Patient Time with patient: 25 - 35 minutes Subjective Date/time seen: 03/24/25 07:16 Interval history: 70 year old female with past medical history of CVA with left side defect, presents to the hospital from [facility] [place] for sudden onset of altered mental status/amnesia that lasted approximately 10 min before resolving. Patient is pleasant sitting up comfortably in bed. She states that all of the confusion has completely resolved. She remains alert oriented x4 at time assessment. She denies any weakness/numbness slurred speech, facial droop. Patient states that she did have slight shortness of breath overnight and was placed oxygen but she denies any shortness of breath or this point. She notes that she has a chronic rash to her right bed has been getting treated with triamcinolone cream with great improvement. She has no other complaints denying chest pain, palpitations, nausea/vomiting, abdominal pain, and dizziness/lightheadedness. Review of Systems Review of Systems: All systems reviewed & are unremarkable except as noted in HPI and below Exam Narrative: AF HR 72 RR 16 Spo2 98 1L NC (baseline RA) BP 165/82 General: female in no acute respiratory distress who is nontoxic appearing, lying semi recumbent in bed. HEENT: Normocephalic. Atraumatic. Extraocular movement intact. Sclera clear and anicteric. No facial asymmetry. Chest: Lungs are clear to auscultation bilaterally. No wheezes or crackles. Speaking full sentences. CV: Heart was regular rate and rhythm. Abd: Abdomen was soft. Nontender. Nondistended. Positive bowel sounds. Ext: No clubbing, cyanosis. 1+ pitting edema to the bilateral lower extremities. Neuro: Patient is alert and oriented x4. Speech is clear. Chronic left sided deficits, partially contracted upper extremity with flexed digits and weak plantar/dorsal flexion to the lower extremity. Skin: Chronic rash to the dorsal aspect of right foot with no associated pain, warmth or swelling. Objective Data Vital Signs Vital Signs: Vital Signs - 24 hr 03/23/25 19:10 03/23/25 19:14 03/23/25 19:15 Temperature 98.4 F Pulse Rate 66 60 60 Respiratory Rate 20 18 21 H Blood Pressure 207/85 H 207/85 H 206/88 H Pulse Oximetry 95 96 95 Oxygen Delivery Room Air Oxygen Flow Rate 03/23/25 19:30 03/23/25 19:45 03/23/25 19:56 Temperature Pulse Rate 60 60 Respiratory Rate 19 19 Blood Pressure 203/82 H 187/132 H Pulse Oximetry 19 L 95 92 Oxygen Delivery Oxygen Flow Rate 03/23/25 20:29 03/23/25 20:30 03/23/25 20:31 Temperature Pulse Rate Respiratory Rate Blood Pressure 192/90 H Pulse Oximetry 95 95 94 Oxygen Delivery Oxygen Flow Rate 03/23/25 20:45 03/23/25 21:00 03/23/25 21:23 Temperature Pulse Rate 60 60 Respiratory Rate 23 H 20 Blood Pressure Pulse Oximetry 95 Oxygen Delivery Oxygen Flow Rate 03/23/25 22:06 03/23/25 22:15 03/23/25 22:16 Temperature Pulse Rate 83 60 60 Respiratory Rate 20 14 16 Blood Pressure 161/73 H Pulse Oximetry 94 96 Oxygen Delivery Oxygen Flow Rate 03/23/25 22:57 03/24/25 00:00 03/24/25 00:10 Temperature 97.2 F L Pulse Rate 60 73 Respiratory Rate 20 Blood Pressure 186/81 H 181/65 H Pulse Oximetry 96 Oxygen Delivery Oxygen Flow Rate 03/24/25 02:10 03/24/25 02:10 03/24/25 04:00 Temperature Pulse Rate 69 69 Respiratory Rate 13 Blood Pressure Pulse Oximetry 94 94 Oxygen Delivery Nasal Cannula Autopap Oxygen Flow Rate 2 03/24/25 05:40 Temperature 97.3 F L Pulse Rate 60 Respiratory Rate 14 Blood Pressure 146/75 H Pulse Oximetry 98 Oxygen Delivery Oxygen Flow Rate Intake/Output Intake/Output: Intake & Output 03/21/25 03/22/25 03/23/25 03/24/25 23:59 23:59 23:59 23:59 Output Total 225 Balance -225 Meds/Results Medications: Active Medications Generic Name Dose Route Start Last Admin Trade Name Freq PRN Reason Stop Dose Admin Acetaminophen 650 mg 03/23/25 23:53 Acetaminophen 325 Mg Tablet PO Q6H PRN Pain Apixaban 5 mg 03/24/25 09:00 Apixaban 5 Mg Tablet PO Q12HR ANGELIA Atorvastatin Calcium 80 mg 03/24/25 00:10 03/24/25 00:50 Atorvastatin 40 Mg Tablet PO 80 mg HS ANGELIA Administration Dextrose 12.5 gm 03/23/25 23:58 Dextrose 50% 25 Gm/50 Ml Syringe IV PUSH PRN PRN Hypoglycemia Protocol Docusate Sodium 100 mg 03/23/25 23:53 Docusate Sodium 100 Mg Capsule PO BID PRN Constipation Empagliflozin 25 mg 03/24/25 09:00 Empagliflozin 25 Mg Tablet BY MOUTH DAILY [facility] Ergocalciferol 1,250 mcg 03/30/25 09:00 Ergocalciferol (Vitamin D2) 1,250 Mcg (50,000 Units) Capsule PO WEEKLY [facility] Glucagon 1 mg 03/23/25 23:58 Glucagon For Inj 1 Mg Vial IM PRN PRN Hypoglycemia Protocol Glucose 15 gm 03/23/25 23:58 Glucose Oral Gel 15 Gm Of Glucse In 37.5 Gm Tube PO PRN PRN Hypoglycemia Protocol Hydralazine HCl 10 mg 03/23/25 23:22 03/24/25 00:16 Hydralazine Hcl 20 Mg/Ml Vial IV PUSH 10 mg Q8H PRN Administration Blood Pressure - High Dextrose 1,000 mls @ 100 mls/hr 03/23/25 23:58 Dextrose 5% 1,000 Ml IVPB PRN PRN Hypoglycemia Protocol Insulin Aspart 2 - 5 units 03/24/25 08:00 Insulin Aspart (*Bkc) 100 Units/Ml SUB-Q TIDWM [facility] Protocol Levothyroxine Sodium 100 mcg 03/24/25 06:30 03/24/25 05:19 Levothyroxine Sodium 100 Mcg Tablet PO 100 mcg DAILY@0630 ANGELIA Administration Lisinopril 15 mg 03/24/25 09:00 Lisinopril 5 Mg Tablet PO DAILY [facility] Meclizine HCl 12.5 mg 03/24/25 09:00 Meclizine Hcl 12.5 Mg Tablet PO DAILY ANGELIA Melatonin 3 mg 03/23/25 23:53 Melatonin 3 Mg Tablet PO HS PRN Sleep Pantoprazole Sodium 40 mg 03/24/25 09:00 Pantoprazole 40 Mg Tablet PO QAM ANGELIA Perflutren Lipid Microsphere 0 ml 03/24/25 06:48 Perflutren Lipid Microspheres 1.5 Ml Vial Diluted To 10 Ml Total Volume IV PUSH 03/27/25 06:48 ONCE PRN adequate visualization Protocol Polyethylene Glycol 17 gm 03/23/25 23:53 Polyethylene Glycol 3350 17 Gm Powd.Pack PO DAILY PRN Constipation Radiology Results: ITS Impressions Head CT 03/23/25 19:07 IMPRESSION: 1. No acute intracranial findings. Chest X-Ray 03/23/25 19:54 IMPRESSION: No acute pulmonary findings. Labs Labs: Laboratory Results - last 24 hr 03/23/25 03/23/25 03/23/25 19:13 23:31 23:39 WBC 7.5 RBC 4.58 Hgb 13.3 Hct 41.1 MCV 89.7 MCH 29.0 MCHC 32.4 RDW 13.8 Plt Count 213 MPV 11.2 H Immature Gran % (Auto) 0.5 Neut % (Auto) 62.0 Lymph % (Auto) 21.8 [place] % (Auto) 9.4 H Eos % (Auto) 5.8 H Baso % (Auto) 0.5 Lymph # (Auto) 1.64 Treasure # (Auto) 0.7 H Eos # (Auto) 0.4 H Baso # (Auto) 0.0 Abs Immat Gran (auto) 0.04 H Absolute Neuts (auto) 4.7 Absolute Nucleated RBC 0.000 Nucleated RBC % 0.0 PT 14.6 INR 1.1 APTT 34.8 Puncture Site Right brachial ABG pH 7.506 H* ABG pCO2 27.4 L ABG pO2 66.6 L ABG PO2/FiO2 Ratio 2.38 ABG HCO3 21.2 L ABG O2 Saturation 95.1 ABG O2 Content 19.0 ABG Base Excess -0.5 A-a Gradient 100.7 Oxyhemoglobin 93.0 Total Hemoglobin 14.5 O2 Delivery Device Nasal cannula O2 Liters/Min 2.0 FiO2 28 Sodium 139 Potassium 3.9 Chloride 106 Carbon Dioxide 22 Anion Gap 11 BUN 18 H Creatinine 0.60 L Estim Creat Clear Calc 71 Estimated GFR > 60 Glucose 123 H POC Capillary Glucose 178 H Hemoglobin A1c 5.6 Calcium 9.4 Total Bilirubin 0.7 AST 19 ALT 18 Alkaline Phosphatase 87 Troponin I < 0.012 Total Protein 6.9 Albumin 4.0 Urine Color Urine Appearance Urine pH Ur Specific [place] Urine Protein Urine Glucose (UA) Urine Ketones Ur Blood (Man) Urine Nitrate Urine Bilirubin Urine Urobilinogen Leukocyte Esterase Rfl Urine RBC Urine WBC Ur Squamous Epith Cells Urine Bacteria Urine Casts 03/23/25 23:52 WBC RBC Hgb Hct MCV MCH MCHC RDW Plt Count MPV Immature Gran % (Auto) Neut % (Auto) Lymph % (Auto) Treasure % (Auto) Eos % (Auto) Baso % (Auto) Lymph # (Auto) Treasure # (Auto) Eos # (Auto) Baso # (Auto) Abs Immat Gran (auto) Absolute Neuts (auto) Absolute Nucleated RBC Nucleated RBC % PT INR APTT Puncture Site ABG pH ABG pCO2 ABG pO2 ABG PO2/FiO2 Ratio ABG HCO3 ABG O2 Saturation ABG O2 Content ABG Base Excess A-a Gradient Oxyhemoglobin Total Hemoglobin O2 Delivery Device O2 Liters/Min FiO2 Sodium Potassium Chloride Carbon Dioxide Anion Gap BUN Creatinine Estim Creat Clear Calc Estimated GFR Glucose POC Capillary Glucose Hemoglobin A1c Calcium Total Bilirubin AST ALT Alkaline Phosphatase Troponin I Total Protein Albumin Urine Color Yellow Urine Appearance Clear Urine pH 8.0 Ur Specific [place] 1.019 Urine Protein Negative Urine Glucose (UA) 3+ H Urine Ketones 1+ H Ur Blood (Man) Negative Urine Nitrate Negative Urine Bilirubin Negative Urine Urobilinogen 1.0 Leukocyte Esterase Rfl Trace H Urine RBC 0-2 Urine WBC 0-5 Ur Squamous Epith Cells None seen Urine Bacteria None seen Urine Casts 0-2 Quality VTE Prophylaxis VTE prophylaxis: pharmacologic ordered
[2025-03-24 07:59] LABS: Hematocrit 39.6 % (37.0-47.0); Hemoglobin 12.9 g/dL (12.0-15.0); Immature Granulocyte Percent A 0.4 % (0-0.5); Lymphocytes Absolute Auto 1.28 K/mm3 (0.9-3.2); Mean Corpuscular HGB Conc 32.6 g/dl (32-36); Mean Corpuscular Hemoglobin 29.0 pg (26-34); Mean Corpuscular Volume 89.0 fl (80-100); Nucleated Red Blood Cells Absolute Auto 0.000 K/mm3 (0.0-0.012); Nucleated Red Blood Cells Perc 0.0 % (0.0-0.2); Platelet Count Result 214 k/mm3 (150-375); Red Blood Count 4.45 M/mm3 (4.2-5.4); White Blood Count 8.0 K/mm3 (4.5-10.0)
[2025-03-24 08:15] LABS: Anion Gap 8 mmol/L (4-12); Blood Urea Nitrogen 19 mg/dL (7-17); Calcium 9.5 mg/dL (8.4-10.2); Carbon Dioxide 24 mmol/L (22-30); Chloride 107 mmol/L (98-107); Estimated CRCL calculation 76 ml/min; Estimated Glomerular Filt Rate > 60; Glucose 117 mg/dL (65-110); Potassium 3.6 mmol/L (3.4-5.0); Sodium 139 mmol/L (137-145)
[2025-03-24] MEDS: PANTOPRAZOLE 40 MG TABLET PO (08:47)
[2025-03-24] MEDS: MECLIZINE HCL 12.5 MG TABLET PO (08:47)
[2025-03-24] MEDS: APIXABAN 5 MG TABLET PO ×2 (08:48→20:22)
[2025-03-24] MEDS: EMPAGLIFLOZIN 25 MG TABLET BY MOUTH (08:48)
[2025-03-24 10:55] LABS: Hemoglobin A1C 5.7 % (<5.7)
[2025-03-24] MEDS: TRIAMCINOLONE ACET 0.1% CREAM 15 GM TUBE 1 APPLIC TOPICAL ×2 (17:05→20:22)
[2025-03-25] VITALS (8 sets, daily range): BP systolic 150–177; BP diastolic 69–82; PULSE 60; RESP 18–20; TEMP 36.2–36.6; O2SAT 94–98
[2025-03-25] MEDS: LEVOTHYROXINE SODIUM 100 MCG TABLET PO (06:08)
[2025-03-25] MEDS: APIXABAN 5 MG TABLET PO (08:04)
[2025-03-25] MEDS: EMPAGLIFLOZIN 25 MG TABLET BY MOUTH (08:05)
[2025-03-25] MEDS: MECLIZINE HCL 12.5 MG TABLET PO (08:05)
[2025-03-25] MEDS: PANTOPRAZOLE 40 MG TABLET PO (08:05)
[2025-03-25] MEDS: TRIAMCINOLONE ACET 0.1% CREAM 15 GM TUBE 1 APPLIC TOPICAL (08:08)
--- NOTE | 2025-03-25 15:31 | WPDNEURCNPN ---
Assessment and Plan Assessment and plan (1) Focal seizures: Code(s): R56.9 - Unspecified convulsions Status: Acute Plan 1. TIA with documentation of old infarct in right basal ganglia, posterior limb of the right internal capsule, right thalamus, and right frontoparietal region, 2. 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 3. 62% stenosis of proximal right internal carotid artery relative normal distal lumen. 4. 49% stenosis of proximal left internal carotid artery. On the basis of these she should continue apixaban 5mg b.i.d., atorvastatin 80mg at night, lisinopril 15mg daily, and her diabetic treatment Farxiga 10mg daily. She has been explained thoroughly that be considering the diagnosis of TIA but she is receiving all the medication appropriately and to give her the benefit of doubt of the localization-related focal seizure in addition to the possible TIA we would like to start her on Keppra 500mg p.o. b.i.d. with no driving for the next 3 months. But no other Neurological intervention at this stage is necessary she understood and satisfied if any further question arises please do not hesitate to contact me thank you Consult date: 03/25/25 HPI: Gayathri Astudillo is a 70 year old female 70 years old right-handed female admitted to the hospital through the emergency room where she was transferred from the half-way by ambulance with sudden onset of difficulties to manage the remote control of TB, unable to remember the channels, and inability to find the right words, could not remember the name of the nurse. Whole episode lasted for 10minutes and everything was back to normal. On arrival in the emergency room she was asymptomatic. She had ongoing history of 1. Diabetes mellitus 2. Hypertension 3. Hyperlipidemia 4. Left hemiplegia secondary to stroke, and history of recent CVA for which she was hospitalized at [facility] in [place]. Patient had been receiving Eliquis and aspirin on a regular basis ,has been using a walker and a cane to manage the walk. On initial exam she was noted to have left kj plegic but her vital signs were abnormal with blood pressure of 207/85, CBC was normal, BMP was normal, except borderline BUN of 18, mast scan was normal, initial CT scan of the head was negative for the bleed, initial chest x-ray was negative, she was admitted to the hospital with the diagnosis of TIA. In addition to other investigation co cardiogram was obtained which documented left atrial chamber dimension moderately enlarged, moderate aortic valve sclerosis, mild to moderate aortic valve regurgitation with calcified annulus, and also trace tricuspid valve regurgitation and moderate pulmonary hypertension Patient has been maintaining the hospital on apixaban 5mg b.i.d., with high dose of atorvastatin 80mg at night, ongoing treatment for diabetes mellitus with Farxiga 10mg daily, glipizide 5mg daily, and metformin 1000mg daily. Additionally she is getting lisinopril 15mg daily. Review of Systems Review of Systems: All systems reviewed & are unremarkable except as noted in HPI and below PMFSH Past Medical History Medical History Cardiac pacemaker in situ Insomnia Heart failure Hypothyroidism Obstructive sleep apnea Hyperlipidemia Hypertension DM2 (diabetes mellitus, type 2) Hemiparesis affecting left side as late effect of cerebrovascular accident CVA (cerebral vascular accident) From a CVA 16 years ago and another CVA 1 year ago Family History Family History Father Myocardial infarct Grandparent Myocardial infarct Cancer Social History Social History Social History: She has 1 stepson and is . She currently lives at [facility]. Code status: Modified code Smoking status: Never smoker Alcohol intake: current Substance use: former Lack of Transportation: No Lack of Food: Never True Current Housing: I Have Housing Concerned About Future Housing: No Difficulty Paying Gas/Electric Bills: No Difficulty Paying for Meds: No Currently Unemployed: No Education: Master's Degree or Higher Difficulty w/ Childcare or Family Care: No Spiritual care concerns: No Meds Home Medications and Allergies Home Medications ?Medication ?Instructions ?Recorded ?Confirmed ?Type acetaminophen 325 mg capsule 650 mg PO Q6H PRN pain 03/23/25 03/23/25 History apixaban 5 mg tablet (Eliquis) 5 mg PO BID 03/23/25 03/23/25 History atorvastatin 40 mg tablet 80 mg PO HS 03/23/25 03/23/25 History dapagliflozin propanediol 10 mg 10 mg PO DAILY 03/23/25 03/23/25 History tablet (Farxiga) diphenhydramine HCl 25 mg capsule 25 mg PO HS PRN insomnia 03/23/25 03/23/25 History (Aler-Cap) docusate sodium 100 mg capsule 100 mg PO BID PRN constipation 03/23/25 03/23/25 History (Col-Rite) ergocalciferol (vitamin D2) 1,250 1,250 mcg PO WEEKLY 03/23/25 03/23/25 History mcg (50,000 unit) capsule esomeprazole magnesium 40 mg 40 mg PO DAILY 03/23/25 03/23/25 History capsule,delayed release (Nexium) glipizide 5 mg tablet 5 mg PO DAILY 03/23/25 03/23/25 History levothyroxine 100 mcg tablet 100 mcg PO DAILY 03/23/25 03/23/25 History lisinopril 5 mg tablet 15 mg PO DAILY 03/23/25 03/23/25 History meclizine 12.5 mg tablet 12.5 mg PO DAILY 03/23/25 03/23/25 History melatonin 3 mg capsule 3 mg PO HS PRN sleep 03/23/25 03/23/25 History metformin 1,000 mg tablet 1,000 mg PO DAILY 03/23/25 03/23/25 History polyethylene glycol 3350 17 17 g PO DAILY PRN constipation 03/23/25 03/23/25 History gram/dose oral powder (ClearLax) triamcinolone acetonide 0.1 % 1 applic topical DAILY PRN skin 03/23/25 03/23/25 History topical cream irritation Allergies Allergy/AdvReac Type Severity Reaction Status Date / Time furosemide Allergy Intermediate gout Verified 03/23/25 23:58 felodipine (From Plendil) Allergy Mild Rash Verified 03/23/25 23:58 Vital Signs Vital Signs - 24 hr 03/24/25 15:38 03/24/25 16:00 03/24/25 16:00 Temperature 36.4 C Pulse Rate 82 76 Respiratory Rate 15 Blood Pressure 165/87 H Pulse Oximetry 99 98 Oxygen Delivery Room Air Oxygen Flow Rate Fraction of Inspired Oxygen 03/24/25 20:00 03/24/25 22:00 03/24/25 22:40 Temperature 35.9 C L Pulse Rate 67 61 86 Respiratory Rate 16 33 H Blood Pressure 189/87 H Pulse Oximetry 96 96 Oxygen Delivery Autopap Oxygen Flow Rate Fraction of Inspired Oxygen 03/24/25 22:40 03/25/25 00:00 03/25/25 04:00 Temperature Pulse Rate 86 60 60 Respiratory Rate 33 H Blood Pressure Pulse Oximetry 96 Oxygen Delivery Autopap Oxygen Flow Rate 2 Fraction of Inspired Oxygen 03/25/25 06:00 03/25/25 08:00 03/25/25 08:00 Temperature 36.6 C Pulse Rate 60 60 Respiratory Rate 18 Blood Pressure 177/82 H Pulse Oximetry 98 Oxygen Delivery Room Air Oxygen Flow Rate Fraction of Inspired Oxygen 03/25/25 09:15 03/25/25 14:00 Temperature 36.2 C L Pulse Rate 60 60 Respiratory Rate 20 18 Blood Pressure 150/69 H Pulse Oximetry 94 96 Oxygen Delivery Room Air Oxygen Flow Rate Fraction of Inspired Oxygen 21 Exam Narrative: Exam today revealed her to be awake alert oriented x3, with speech not dysphasic not dysarthric not dysphonic, able to follow all the verbal commands appropriately, interested in all the findings, head normocephalic with no bruit, neck supple with no cervical bruit no thyromegaly no lymphadenopathy, heart regular lungs clear, abdomen is soft nontender, neurologically she is awake alert oriented x3 with normal and nonfocal dysphasic speech pupils round regular react to light equally, extraocular movements full, sensation intact, face symmetrical, midline motor examination revealed her to have left hemiparesis with hyperreflexia and upgoing plantar response. There is no gross cerebellar deficit. Results Labs 03/24/25 07:14 03/24/25 07:14
--- NOTE | 2025-03-25 16:17 | P.DS_ITS ---
DS: Admitting Diagnosis Discharge Date 03/25/2025 Admitting Diagnosis transient global amnesia htn heart failure cardiac pacemaker dm hypothyroid rigoberto DS: Discharge Diagnosis Discharge Diagnosis (1) Transient global amnesia: Code(s): G45.4 - Transient global amnesia Status: Acute (2) Hypertension: Code(s): I10 - Essential (primary) hypertension Status: Acute (3) Heart failure: Code(s): I50.9 - Heart failure, unspecified Status: Acute (4) Cardiac pacemaker in situ: Code(s): Z95.0 - Presence of cardiac pacemaker Status: Acute (5) Hyperlipidemia: Code(s): E78.5 - Hyperlipidemia, unspecified Status: Acute (6) DM2 (diabetes mellitus, type 2): Code(s): E11.9 - Type 2 diabetes mellitus without complications Status: Acute (7) Hypothyroidism: Code(s): E03.9 - Hypothyroidism, unspecified Status: Acute (8) Obstructive sleep apnea: Code(s): G47.33 - Obstructive sleep apnea (adult) (pediatric) Status: Acute DS: Summary Hospital Course Reason for hospitalization: transient global amnesia htn heart failure cardiac pacemaker dm hypothyroid rigoberto Hospital Course: 70 year old female with past medical history of CVA with left side defect, hypertension, hypothyroidism, and diabetes presents to the hospital from [facility] for sudden onset of altered mental status/amnesia. During the episode patient could not remember what a remote was and developed word salad that lasted approximately 10 min before resolving. No associated weakness/numbness, slurred speech, or facial droop. Patient remained on atorvastatin and eliquis. Head CT was unremarkable. Head/neck CTA showed old infarcts involving the right basal ganglia, posterior limb right internal capsule, right thalamus, and right frontoparietal region. 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 62% stenosis of the proximal right ICA and 49% stenosis of the proximal left ICA. Discussed results with patient and she states understanding that she will need vascular surgery follow up for which a referral is to be obtained by either PCP or neurology. Unfortunately due to patients pacemaker a MRI was unable to be obtained. An echo showed LVEF 60-65% with grade III diastolic dysfunction and moderate pulmonary htn. Patient states known history of diastolic dysfunction and follows with cardiology. Neurology evaluted patient and agreed with continuing the apixaban 5mg b.i.d., atorvastatin 80mg at night, lisinopril 15mg daily, and her diabetic treatment Farxiga 10mg daily. Per neurology since the patient was been receiving the all of the appropriate medications for stroke/tia, possible localization-related focal seizure in addition to the possible TIA. Patient started on Keppra 500mg p.o. b.i.d. with no driving for the next 3 months. Patient to follow up with neurology in the outpatient office. Patient had no complaints at time Of discharge stating she is at her baseline weakness to the left upper and lower extremity. She denies any chest pain, shortness a breath, palpitations, nausea/ vomiting, abdominal pain, and dizziness/lightheadedness. Throughout admission patient had no recurrence the altered mental status . Patient discharged back to the assisted living in a stable condition. She is to follow up with her primary care provider in 1 week and Neurology as scheduled. Status at Discharge Functional status at discharge: wheelchair bound (working with PT/OT at facility on cane use) Time Spent with Patient Time attestation: Total time spent providing and/or coordinating discharge services: Time spent: Greater than 30 minutes Exam Narrative: AF HR 60 RR 18 SpO2 96 RA BP 150/69 General: female in no acute respiratory distress who is nontoxic appearing, lying semi recumbent in bed. HEENT: Normocephalic. Atraumatic. Extraocular movement intact. Sclera clear and anicteric. No facial asymmetry. Chest: Lungs are clear to auscultation bilaterally. No wheezes or crackles. Speaking full sentences. CV: Heart was regular rate and rhythm. Abd: Abdomen was soft. Nontender. Nondistended. Positive bowel sounds. Ext: No clubbing, cyanosis. Trivial edema to the bilateral lower extremities. Neuro: Patient is alert and oriented x4. Speech is clear. Chronic left sided deficits, partially contracted upper extremity with flexed digits and weak plantar/dorsal flexion to the lower extremity. Skin: Chronic rash to the dorsal aspect of right foot with no associated pain, warmth or swelling. Improving. DS: Data Data Completed and Pending Completed studies during hospitalization: head neck cta chest xr head ct Labs on day of discharge: Labs from last 24 hours 03/25/25 03/25/25 03/24/25 11:21 08:12 21:07 POC Capillary Glucose 138 H 123 H 173 H 03/24/25 16:57 POC Capillary Glucose 132 H Discharge Plan Discharge Attending physician on discharge: Agapito Wilson Consulting providers: Tessa Conroy; Patricia Molina Discharging Clinician: Patricia Molina Anticipated Discharge Date/Time: 03/25/25 15:32 Patient Disposition: NH Group Home/Asst Living Activity: as tolerated Diet: as tolerated and diabetic Discharge Instructions: Discharge disposition: Patient admitted for acute confusion Evaluated by neurology Patient previously diagnosed with a stroke Medications * Continue atorvastatin and eliquis as previously prescribed. * Do not stop any medication without talking to your doctor. Stroke prevention * Control blood pressure, cholesterol, and blood sugar as advised by your healthcare team. * Eat a healthy diet, such as the Mediterranean diet, with plenty of fruits and vegetables and less salt. * Exercise regularly as recommended by your therapist. Even light activity can help. * Do not smoke. If you need help quitting, ask your provider. * Limit alcohol and avoid recreational drugs. Recognizing Stroke Warning Signs * Call 911 immediately if you notice any of these symptoms: * Sudden weakness or numbness in the face, arm, or leg (especially on one side) * Sudden confusion, trouble speaking, or understanding * Sudden trouble seeing in one or both eyes * Sudden trouble walking, dizziness, loss of balance or coordination * Sudden severe headache with no known cause Neurology is concerned for a possible underlying seizure activity that resulted in the patients symptoms Safety Precautions * Avoid activities where a sudden loss of awareness could be dangerous, such as swimming alone, bathing in a tub (take showers instead), climbing ladders, or operating heavy machinery.[1-2][4] * Do not work at heights or with dangerous equipment until cleared by your doctor.[1] * When bathing or swimming, always have someone nearby who knows you have had a seizure.[1-2][4] Driving and Legal Considerations * You should not drive for at least 3 months or until your doctor tells you it is safe. Medication and Follow-Up * Started on Keppra 500 mg twice a day, attached is information on this medication. Do not stop or change your medication without talking to your doctor.[2-3] When to Seek Immediate Medical Attention * Call 911 or go to the emergency room if you have another seizure that lasts more than 5 minutes, if you do not fully recover, or if you have repeated seizures without regaining consciousness between them. Imaging showed total occlusion of the left vertebral artery and 62% stenosis of the right internal carotid artery. Follow up with vascular surgery Referral can be obtained from neurology or PCP Monitor blood pressures Take caution while standing, rising, or moving Change positions slowly taking a break between each position change If you standing feel dizzy sit back down and take a break Encouraged to continue with yearly vaccinations Return to the emergency department if he developed sudden shortness of breath, chest pain, nausea, vomiting, upset stomach or intractable diarrhea Return to the emergency department if you develop fever greater than 100.5 Follow-up with the primary care physician within 1-2 weeks Thank you for [facility] for your healthcare needs Patient Instructions: Levetiracetam (By mouth), Apixaban (By mouth), New-Onset Seizure in Adults (DC), Blood Thinners (DC) Patient Language: [place]errat[place] Stand Alone Forms: General Discharge Information Follow-up/Referrals: Jan,Sony Esparza MD [Primary Care Provider] - 1 Week Tessa Conroy MD [Physician, Neurology] - 4 Weeks Discharge Medications: New levetiracetam [Keppra] 500 mg tablet 500 mg PO BID Qty: 60 0RF Continued acetaminophen 325 mg capsule 650 mg PO Q6H PRN (Reason: pain) atorvastatin 40 mg tablet 80 mg PO HS diphenhydramine HCl [Aler-Cap] 25 mg capsule 25 mg PO HS PRN (Reason: insomnia) docusate sodium [Col-Rite] 100 mg capsule 100 mg PO BID PRN (Reason: constipation) Eliquis 5 mg tablet 5 mg PO BID ergocalciferol (vitamin D2) 1,250 mcg (50,000 unit) capsule 1,250 mcg PO WEEKLY dapagliflozin propanediol [Farxiga] 10 mg tablet 10 mg PO DAILY glipizide 5 mg tablet 5 mg PO DAILY levothyroxine 100 mcg tablet 100 mcg PO DAILY lisinopril 5 mg tablet 15 mg PO DAILY meclizine 12.5 mg tablet 12.5 mg PO DAILY melatonin 3 mg capsule 3 mg PO HS PRN (Reason: sleep) metformin 1,000 mg tablet 1,000 mg PO DAILY polyethylene glycol 3350 [ClearLax] 17 gram/dose powder 17 g PO DAILY PRN (Reason: constipation) esomeprazole magnesium [Nexium] 40 mg capsule,delayed release(DR/EC) 40 mg PO DAILY triamcinolone acetonide 0.1 % cream 1 applic TOPICAL DAILY PRN (Reason: skin irritation) Date of admission: 03/23/25 21:14 Primary Care Provider: Jan,Sony Esparza Admitting Provider: Lexi Jeff Attending physician on admission: Lexi Jeff Condition: Stable Hospitalist MIPS Heart Failure (Exclusion) Patient has history of Heart Transplant or Left Ventricular Assistive Device?: No IF YES, STOP HERE Heart Failure (Qualifier) Patient has current or prior documentation of LVEF less than or equal to 40%, or mod/servere depressed LVSF?: No IF NO, STOP HERE
== END 2025-03-25 19:00 ==
LOC: ANHED 21:09 → ANH3MEDSUR 03-24 06:50
PROVIDERS: Nurse Practitioner; Admitting Provider Internal Medicine; Emergency Provider Emergency Medicine; PCP Internal Medicine; Visit Provider Internal Medicine
DX: G45.4 Transient global amnesia (principal); R56.9 Unspecified convulsions; I50.9 Heart failure, unspecified; E11.9 Type 2 diabetes mellitus without complications; E78.5 Hyperlipidemia, unspecified; I11.0 Hypertensive heart disease with heart failure; E03.9 Hypothyroidism, unspecified; I69.354 Hemiplegia and hemiparesis following cerebral infarction affecting left non-dominant side; I08.3 Combined rheumatic disorders of mitral, aortic and tricuspid valves; G47.33 Obstructive sleep apnea (adult) (pediatric); Z95.0 Presence of cardiac pacemaker; Z74.09 Other reduced mobility; Z99.89 Dependence on other enabling machines and devices; Z79.82 Long term (current) use of aspirin; Z79.01 Long term (current) use of anticoagulants; Z79.899 Other long term (current) drug therapy; Z79.84 Long term (current) use of oral hypoglycemic drugs; Z79.1 Long term (current) use of non-steroidal anti-inflammatories (NSAID); Z79.52 Long term (current) use of systemic steroids
CPT/HCPCS: 36415; 36600; 70450; 70496; 70498; 71045; 80048; 80053; 81001; 82805; 82948; 83036; 84484; 85018; 85025; 85610; 85730; 93005; 93306; 96374; 96375; 97110; 97116; 97162; 97166; 99285; A9270; C8929; G0378; J0360; Q9967